=== PATIENT | female | born 1980 | race African-American/Black ===

== ENCOUNTER 2017-08-06 12:09 | Emergency (ER) | payer OTHER ==
[2017-08-06] MEDS ORDERED: Ondansetron HCl/PF 4 MG/2 ML Vial ONE (12:37)
[2017-08-06] MEDS ORDERED: Morphine Sulfate 2 MG/ML SYRINGE ONE (12:37)
[2017-08-06 12:41] LABS: #Eosinphils 0.1 thou/uL (0.0-0.7); #Lymphocytes 2.6 thou/uL (1.20-3.40); #Monocytes 0.6 thou/uL (0.11-0.59); #Neutrophils 5.9 thou/uL (1.40-6.50); %Basophils 0.3 % (0.0-1.0); %Eosinophils 0.6 % (0.0-10.0); %Lymphocytes 28.5 % (21.0-51.0); %Monocytes 6.3 % (0.0-10.0); Hematocrit 40.8 % (36.0-47.0); Mean Platelet Volume 6.9 fL (7.4-10.4); White Blood Cell (WBC) Count 9.2 thou/uL (4.8-10.8)
--- NOTE | 2017-08-06 12:46 | RAD ---
PORTABLE CHEST: HISTORY: Chest pain. FINDINGS: Heart size and mediastinum are within normal limits. The lungs are clear of infiltrates. No signif icant bony findings. IMPRESSION: No active intrathoracic disease. POS: [facility]
[2017-08-06 12:59] LABS: ALT (SGPT) 7 U/L (8-55); AST (SGOT) 13 U/L (5-34); Alkaline Phosphatase 67 U/L (40-150); Anion Gap 10 mmol/L (10-20); BUN (Urea Nitrogen) 5 mg/dL (7.0-18.7); Bilirubin, Total 0.7 mg/dL (0.2-1.2); CK (CPK) 96 U/L (29-168); Calc. Creatinine Clearance 0 mL/min (70-130); Calcium 9.2 mg/dL (7.8-10.44); Carbon Dioxide 28 mmol/L (22-29); Chloride 106 mmol/L (98-107); Estimated GFR-MDRD Greater than 90; Globulin 2.9 g/dL (2.4-3.5); Lipase 26 U/L (8-78); Protein, Total 6.7 g/dL (6.0-8.3)
[2017-08-06 13:04] LABS: Troponin I Less than 0.010 ng/mL (< 0.028)
[2017-08-06] MEDS ORDERED: Potassium Chloride 20 MEQ TAB ONE (13:19)
--- NOTE | 2017-08-06 14:17 | ULT ---
RIGHT UPPER QUADRANT ULTRASOUND: Indication: History of chest pain. FINDINGS: Liver measures 18.4 cm. No focal hepatic lesion is evident. Visualized gallbladder is normal appearing. No sonographic Lane's sign is reported. Common bile du ct measures 2.9 mm. Visualized pancreas is unremarkable. Right kidney measures 11.1 cm. No focal renal lesion or hydronephrosis is evident. IMPRESSION: No acute sonographic abnormality within the right upper quadrant. POS: [facility]
[2017-08-06 15:45] LABS: Troponin I Less than 0.010 ng/mL (< 0.028)
== END 2017-08-06 16:08 | disposition home or self-care (01) ==
LOC: ERS 12:09
DX: R07.89 Other chest pain (principal); G89.29 Other chronic pain; M54.9 Dorsalgia, unspecified; F17.210 Nicotine dependence, cigarettes, uncomplicated; I10 Essential (primary) hypertension; Z79.899 Other long term (current) drug therapy
CPT/HCPCS: 36415; 71010; 76705; 80053; 82553; 83690; 84484; 85025; 93005; 96361; 96374; 96375; J2270; J2405

== ENCOUNTER 2017-08-27 22:34 | Inpatient (IN) | payer OTHER ==
[2017-08-27] MEDS ORDERED: Acetaminophen 500 MG TAB ONE (23:57)
[2017-08-27] MEDS ORDERED: Metoclopramide HCl 10 MG/2 ML VIAL ONE (23:57)
[2017-08-27] MEDS ORDERED: diphenhydrAMINE 50 MG/ML VIAL ONE (23:57)
[2017-08-27 23:59] LABS: #Eosinphils 0.1 thou/uL (0.0-0.7); #Lymphocytes 3.5 thou/uL (1.20-3.40); #Monocytes 0.9 thou/uL (0.11-0.59); #Neutrophils 14.8 thou/uL (1.40-6.50); %Basophils 0.1 % (0.0-1.0); %Eosinophils 0.7 % (0.0-10.0); %Lymphocytes 18.2 % (21.0-51.0); %Monocytes 4.8 % (0.0-10.0); Hematocrit 39.7 % (36.0-47.0); White Blood Cell (WBC) Count 19.4 thou/uL (4.8-10.8)
[2017-08-28] MEDS ORDERED: Dexamethasone 4 mg/ml Vial ONE (00:01)
[2017-08-28 00:21] LABS: ALT (SGPT) 12 U/L (8-55); AST (SGOT) 12 U/L (5-34); Alkaline Phosphatase 65 U/L (40-150); Anion Gap 13 mmol/L (10-20); BUN (Urea Nitrogen) 7 mg/dL (7.0-18.7); Bilirubin, Total 0.4 mg/dL (0.2-1.2); Calc. Creatinine Clearance 0 mL/min (70-130); Calcium 9.2 mg/dL (7.8-10.44); Carbon Dioxide 22 mmol/L (22-29); Chloride 109 mmol/L (98-107); Estimated GFR-MDRD Greater than 90; Protein, Total 6.9 g/dL (6.0-8.3)
[2017-08-28] MEDS ORDERED: Ondansetron HCl/PF 4 MG/2 ML Vial IVP PRN (04:06)
[2017-08-28] MEDS ORDERED: Ondansetron ODT 4 MG TAB SL PRN (04:06)
[2017-08-28] MEDS ORDERED: Acetaminophen 325 MG TAB PO PRN (04:06)
[2017-08-28 05:52] VITALS: BMI 25.4
--- NOTE | 2017-08-28 08:14 | CT ---
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 Pt states pain started in back of r side of head and move d into shoulder and neck. Also reports r sided face tingling. Denies rash, denies fever, denies cough, denies dysuria. Pt has h/o migraine headaches "all the time", last was 2 weeks ago and was se en here. Pt states she usually gets headaches when she gets stressed out. Pmh high BP. TECHNIQUE: Axial computed tomography images of the head/brain without intravenous contrast. COMPARISON: No relevant prior studies available. FINDINGS: No definite acute skull fracture. Included paranasal sinuses are essentially clear. No acute intracranial hemorrhage or mass effect. Ventricle size is normal for age. No definite acute infarct by CT. IMPRESSION: No acute intracranial bleed or mass effect. Thank you for allowing us to participate in the care of your patient. Dictated and Authenticated by: Kingsley Cheng MD 08/28/2017 1:27 AM Central Time ([place] \\T\\ [place]) FINAL REPORT CT HEAD NONCONTRAST: 08/28/2017, PERFORMED ON AN EMERGENCY BASIS AT 0103 HOURS HISTORY: Headache. Right facial tingling. COMPARISON: 01/13/2016. FINDINGS: Findings agree with the preliminary report by Dr. Cheng from [facility]. No acute intracrani al abnormalities are demonstrated on noncontrast CT head. Code QA. POS: [facility]
[2017-08-28] MEDS: Sodium Chloride 0.9% 1,000 ML IV SCH ×2 (13:00→20:57)
[2017-08-28] MEDS ORDERED: Potassium Chloride 20 MEQ TAB PO SCH (13:00)
--- NOTE | 2017-08-28 15:05 | RAD ---
CERVICAL SPINE FIVE VIEWS: HISTORY: Neck pain. FINDINGS: Osteophytosis is present throughout the vertebral bodies and facets. No acute fracture or dislocati on is apparent. There is rightward convex curvature of the lower cervical spine on the frontal view . Mild chronic wedging of the C4 and C5 vertebral bodies is similar in appearance to the prior stud y from 2007. IMPRESSION: Cervical spondylosis. No acute osseous abnormalities are demonstrated. POS: [facility]
[2017-08-28] MEDS: Ketorolac Tromethamine 30 MG/ML VIAL IVP PRN (18:11)
[2017-08-28] MEDS: Ondansetron HCl/PF 4 MG/2 ML Vial SLOW IVP PRN (19:23)
[2017-08-28] MEDS: Topiramate 25 MG TAB PO SCH (20:57)
[2017-08-29] MEDS: Acetaminophen 325 MG TAB PO PRN ×2 (00:24→08:49)
[2017-08-29] MEDS: Ketorolac Tromethamine 30 MG/ML VIAL IVP PRN ×3 (03:59→09:52)
[2017-08-29] MEDS: Sodium Chloride 0.9% 1,000 ML IV SCH ×3 (04:00→20:10)
[2017-08-29] MEDS: Topiramate 25 MG TAB PO SCH ×2 (10:48→20:11)
[2017-08-29] MEDS: Acetaminophen/Codeine 30-300mg Tablet PO PRN ×2 (12:23→20:11)
[2017-08-29 12:42] LABS: Amphetamine Detected (NotDetected); Methadone Not Detected (NotDetected); Methamphetamine Detected (NotDetected)
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
[2017-08-29] MEDS: Valproate Sodium 500 MG in Sodium Chloride 0.9% 100 ML IVPB SCH (20:10)
[2017-08-30] MEDS ORDERED: ISOVUE-370 76%-LOCM 1 ML ONE (02:19)
[2017-08-30] MEDS: Sodium Chloride 0.9% 1,000 ML IV SCH ×3 (05:30→22:23)
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
[2017-08-30] MEDS: Topiramate 25 MG TAB PO SCH ×2 (08:42→22:20)
[2017-08-30] MEDS: Acetaminophen/Codeine 30-300mg Tablet PO PRN ×3 (08:42→17:37)
[2017-08-30] MEDS: Valproate Sodium 500 MG in Sodium Chloride 0.9% 100 ML IVPB SCH (08:44)
[2017-08-30] MEDS: Ondansetron HCl/PF 4 MG/2 ML Vial SLOW IVP PRN (15:13)
--- NOTE | 2017-08-30 16:51 | MRI ---
BRAIN MRI WITHOUT CONTRAST: DATE: 08/30/17. COMPARISON: None. HISTORY: Headache and right leg weakness. TECHNIQUE: Multiplanar, multisequence MR imaging of the brain is obtained without contrast. FINDINGS: There is a focus of restricted diffusion measuring 1.1 cm in AP dimension along the inferior aspect o f the medulla laterally on the right, evidence of acute medullary infarction. There is associated increased T2 and FLAIR signal within the medulla in this region. No midline shift or mass effect. Axial gradient echo imaging demonstrates no evidence for intracranial hemorrhage. Imaged paranasal sinuses/mastoid air cells appear grossly unremarkable. IMPRESSION: Acute right-sided medullary infarction. No intracranial hemorrhage seen. POS: [facility]
--- NOTE | 2017-08-30 22:26 | CT ---
CT NECK WITH 3D VOLUME RENDERING: Indication: Stroke. FINDINGS: The imaged aortic arch is patent. Bilateral subclavian arteries are patent. There is slight dominance of the right vertebral artery. There is marked luminal narrowing of the distal, intradural, right ve rtebral artery with subsequent diminished caliber. A component of the small caliber could relate to a partial termination in PICA. The nondominant left vertebral artery is patent. Evaluation of each com mon carotid artery and cervical ICA reveals no high grade stenosis or occlusion. IMPRESSION: Focal luminal irregularity and diminished caliber of the right vertebral artery for which a component of distal atherosclerotic vascular disease is suspected and does correlate to the MR distribution of recent infarction of the brain stem. POS: [facility]
--- NOTE | 2017-08-31 00:21 | PRG ---
DATE OF SERVICE: 08/30/2017 SUBJECTIVE: Ms. Balderas is a pleasant 37-year-old female who presented with the he adaches and difficulty with gait imbalance. She had MRI brain done today which did show small acute infarcts involving the right posterolateral medulla. She reports that she continues to have headac he on the right frontotemporal region. The headache did get better with the use of IV Depakote; how ever, the effect only lasted for a few hours with recurrence of the symptoms. PHYSICAL EXAMINATION: VITAL SIGNS: Blood pressure of 155/85, pulse of 85, temperature of 97.7, respirations of 18, O2 sat of 99% on room air. GENERAL: Well-developed, well-nourished female in no apparent distress. RESPIRATORY: Clear to auscultation bilaterally. CARDIOVASCULAR: Regular rate and rhythm. NEUROLOGIC: Essentially unchanged when compared to yesterday. IMAGING STUDIES: MRI brain without contrast was reviewed, for which findings are as noted in the luo bjective section of this dictation. IMPRESSION: 1. Acute right-sided posterolateral medullary ischemic infarct. 2. Hypertension. 3. Migraine. Ms. Balderas is a pleasant 37-year-old female, who presented with an acute onset of headache and right-sided weakness and difficulty with balance. She had an MRI of brain done, which did show acute infarction involving the right posterolateral medullary region. This is likely secon gato to poorly controlled high blood pressure. After discussing with the patient, she did mention t hat she is not compliant with her blood pressure medications and she has not been taking her blood p ressure medicine as prescribed over the past few days. I have encouraged her that she needs to take her medications regularly and follow the compliance as directed. I will recommend starting her on aspirin 325 mg daily for secondary stroke prevention. I will recommend continuing PT, OT. I will o btain echocardiogram and CT angiogram of the neck for further evaluation. Thank you for your consultation.
[2017-08-31] MEDS: cloNIDine 0.1 MG TAB PO PRN (01:11)
[2017-08-31] MEDS: Sodium Chloride 0.9% 1,000 ML IV SCH ×3 (03:20→20:28)
[2017-08-31] MEDS: Acetaminophen 325 MG TAB PO PRN ×2 (03:27→20:11)
--- NOTE | 2017-08-31 08:50 | PRG ---
DATE OF SERVICE: 08/31/2017 SUBJECTIVE: The patient still has a headache. She has strong upper extremity hand grasp and she al so has toe wiggle however, she is still having some ataxia. PHYSICAL EXAMINATION: GENERAL: Upon evaluation, she is awake. She is alert. She still has a headache. VITAL SIGNS: Her blood pressure 120/70, pulse 60, respiration rate 18. She is afebrile. NECK: Supple with no increased JVP or carotid bruit. Carotid had good upstroke with no thyromegaly . COR: Regular rate and rhythm. CHEST: Symmetrical. Clear to auscultation and percussion. ABDOMEN: Soft, nontender with normoactive bowel sounds. There is no bruit or organomegaly. EXTREMITIES: No edema or cyanosis. She had palpable pedal pulses. SKIN: There is no evidence of ulcers lesion, or rash. NEUROLOGIC: She is awake, alert, and oriented to person, place, and time. ASSESSMENT: 1. Migraine headache. 2. Acute cerebrovascular accident. 3. Hypertension. PLAN: We will continue physical therapy, occupational therapy and aspirin. The patient verbalized understanding and all questions answered to her satisfaction.
[2017-08-31] MEDS: Aspirin 325 MG TAB PO SCH (08:58)
[2017-08-31] MEDS: Topiramate 25 MG TAB PO SCH ×2 (08:58→20:11)
[2017-08-31] MEDS: Acetaminophen/Codeine 30-300mg Tablet PO PRN (17:56)
[2017-09-01] MEDS: Acetaminophen/Codeine 30-300mg Tablet PO PRN ×2 (04:05→13:52)
[2017-09-01] MEDS: Sodium Chloride 0.9% 1,000 ML IV SCH ×3 (06:15→16:20)
[2017-09-01] MEDS: Topiramate 25 MG TAB PO SCH ×2 (09:15→21:18)
[2017-09-01] MEDS: Aspirin 325 MG TAB PO SCH (09:15)
[2017-09-01] MEDS: Acetaminophen 325 MG TAB PO PRN (09:25)
[2017-09-01] MEDS ORDERED: Milk Of Magnesia 30 ML UDCUP PO SCH (10:00)
[2017-09-01 11:09] LABS: #Basophils 0.1 thou/uL (0.0-0.2); #Eosinphils 0.1 thou/uL (0.0-0.7); #Lymphocytes 1.9 thou/uL (1.20-3.40); #Monocytes 1.1 thou/uL (0.11-0.59); #Neutrophils 5.5 thou/uL (1.40-6.50); %Eosinophils 1.2 % (0.0-10.0); %Monocytes 13.1 % (0.0-10.0); Hematocrit 38.6 % (36.0-47.0); Mean Platelet Volume 6.8 fL (7.4-10.4); Red Blood Cell (RBC) Count 3.56 mill/uL (4.20-5.40); White Blood Cell (WBC) Count 8.8 thou/uL (4.8-10.8)
[2017-09-01 11:41] LABS: Anion Gap 9 mmol/L (10-20); BUN (Urea Nitrogen) 6 mg/dL (7.0-18.7); Calc. Creatinine Clearance 119 mL/min (70-130); Calcium 8.8 mg/dL (7.8-10.44); Carbon Dioxide 20 mmol/L (22-29); Chloride 112 mmol/L (98-107); Estimated GFR-MDRD Greater than 90
--- NOTE | 2017-09-01 15:40 | PQF ---
CLINICAL DOCUMENTATION IMPROVEMENT CLARIFICATION FORM: ICD-10 Updated PLEASE DO AN ADDENDUM TO THE PROGRESS NOTE WITH ANY DOCUMENTATION UPDATES OR ADDITIONS AND CARRY THROUGH TO DC SUMMARY. THANK YOU. DATE: 09/01/17 ATTN: Dr. Rodriguez 09/03/17 Please exercise your independent, professional judgment in responding to the clarification form. Clinical indicators are provided on the bottom of this form for your review Please check appropriate box(s): [ ] Hemiplegia Specify: [ ] Non dominant side [ ] Dominant side [ x ] R sided weakness due to Acute CVA [ ] Weakness (please specify anatomical area) Specify: [ x] Non dominant side [ ] Dominant side [ ] Other diagnosis [ ] Unable to determine CLINICAL INDICATORS - SIGNS / SYMPTOMS / LABS NEUROLOGY PN 08/30: PRESENTED W/ AN ACUTE ONSET OF HEADACHE & RIGHT-SIDED WEAKNESS & DIFFICULTY W/ BALANCE. MRI BRAIN DID SHOW ACUTE INFARCTION INVOLVING THE R POSTEROLATERAL MEDULLARY REGION. RISKS: PN 11/: MIGRAINE HEADACHE. ACUTE CVA, HTN. TREATMENT: NEURO PN 08/30: I WILL RECOMMEND STARTING HER ON ASPIRIN 325 MG DAILY FOR SECONDARY STROKE PREVENTION. RECOMMEND CONTINUING PT/OT Thank you, Miguelina (This form is maintained as a part of the permanent medical record) 2015 [employer] All Rights Reserved Miguelina Álvarez RN, BSN [email or web address] Office: [phone] [facility]ASS[facility]T HOSPITALDrew
[2017-09-01] MEDS: cloNIDine 0.1 MG TAB PO PRN (16:20)
--- NOTE | 2017-09-01 17:51 | PRG ---
DATE OF SERVICE: 09/01/2017 Ms. Balderas is a 37-year-old female admitted for right-sided weakness. In addition, she presents wi th headache and mild degree of ataxia. She had imaging performed in the way of an MRI scan as well as CT angiogram which reveals the presence of vessel irregularity involving the right vertebral daniela ry. She does have a normal flow into the distant aspect of her posterior circulation. The MRI scan reveals a right-sided acute ischemic event within the medulla. She is currently recovering in the hospital. She has been ambulating with a 4-point walker. She seymour s a history of hypertension for which she is not compliant with her medications. I was consulted to evaluate her and determine if interventional management of the vertebral artery irregularity was an appropriate next step. I believe at this point in time I would manage her first medically. She seymour s already been started on an adult aspirin. I have advised her that she needs to remain vigilant wi th respect to maintenance of her blood pressure medications as well as her antiplatelet agent. She is likely to discharge to rehabilitation. My plan will be to follow up with her in the outpatient s etting for followup imaging. I have discussed the case with her nurse as well as Dr. Burt with neur ology.
[2017-09-01] MEDS: Docusate 100 MG CAP PO SCH (21:18)
[2017-09-02] MEDS: Docusate 100 MG CAP PO SCH ×2 (08:55→20:29)
[2017-09-02] MEDS: Acetaminophen/Codeine 30-300mg Tablet PO PRN ×2 (08:55→20:30)
[2017-09-02] MEDS: Aspirin 325 MG TAB PO SCH (08:55)
--- NOTE | 2017-09-02 09:49 | PRG ---
DATE OF SERVICE: 09/02/2017 SUBJECTIVE: The patient had a good night. She still has a headache on and off. She is depressed a nd wants something for this. PHYSICAL EXAMINATION: GENERAL: Upon evaluation, she is awake, alert, and oriented to person, place, and time. VITAL SIGNS: Her blood pressure is 120/70, pulse 60, respiration rate 18. She is afebrile. NECK: Supple with no increased JVP or carotid bruit. Carotid had good upstroke with no thyromegaly . COR: Regular rate and rhythm. CHEST: Symmetrical. Clear to auscultation and percussion. ABDOMEN: Soft, nontender with normoactive bowel sounds. No bruit or organomegaly. EXTREMITIES: No edema or cyanosis. She had palpable pedal pulses. SKIN: There is no evidence of ulcers, lesion, or rash. NEUROLOGIC: She is awake. She is alert. She does have some ataxia still, but she has good upper e xtremity strength. ASSESSMENT: 1. Acute cerebrovascular accident. 2. Hypertension. 3. Drug use. 4. Depression. 5. Migraine headache. PLAN: 1. The patient will be started on Zoloft 50 mg at bedtime. 2. We will ask our social research assistant to arrange rehabilitation placement. all consultants.
[2017-09-02] MEDS: Topiramate 25 MG TAB PO SCH ×2 (10:20→20:29)
[2017-09-03] MEDS: Docusate 100 MG CAP PO SCH (08:05)
[2017-09-03] MEDS: Aspirin 325 MG TAB PO SCH (08:05)
[2017-09-03] MEDS: Topiramate 25 MG TAB PO SCH (08:06)
[2017-09-03] MEDS: Acetaminophen/Codeine 30-300mg Tablet PO PRN (15:03)
[2017-09-03 15:52] VITALS: BP 140/82; TEMP 98
== END 2017-09-03 19:40 | DRG 65 ==
LOC: ERS 22:34 → OBSVTOIN 08-28 03:46 → ONC 08-28 03:46 → 2SE 09-01 13:01
PROVIDERS: ADMIT Specialist; ATTEND Specialist
DX: I63.9 Cerebral infarction, unspecified (principal); G81.93 Hemiplegia, unspecified affecting right nondominant side; I10 Essential (primary) hypertension; F32.9 Major depressive disorder, single episode, unspecified; G43.909 Migraine, unspecified, not intractable, without status migrainosus; F19.90 Other psychoactive substance use, unspecified, uncomplicated; Z91.14 Patient's other noncompliance with medication regimen; R27.0 Ataxia, unspecified; F17.210 Nicotine dependence, cigarettes, uncomplicated
CPT/HCPCS: 36415; 70450; 70498; 70551; 72040; 80048; 80053; 80061; 80306; 81025; 85025; 85652; 93306; 96361; 96365; 96375; A4216; G8978-GP-CK; G8978-GP-CM; G8979-GP-CJ; G8987-GO-CJ; G8988-GO-CI; G8996-GN-CI; G8997-GN-CH; J1100; J1200; J1885; J2405; J2765; J7050

== ENCOUNTER 2017-10-25 14:25 | Emergency (ER) | payer OTHER ==
[~2017-10-25 14:25] MED LIST: ISOVUE-370 76%-LOCM 1 ML ONE
[2017-10-25 15:58] LABS: #Eosinphils 0.1 thou/uL (0.0-0.7); #Lymphocytes 2.7 thou/uL (1.20-3.40); #Monocytes 0.8 thou/uL (0.11-0.59); #Neutrophils 5.7 thou/uL (1.40-6.50); %Basophils 0.5 % (0.0-1.0); %Eosinophils 1.6 % (0.0-10.0); %Monocytes 8.2 % (0.0-10.0); %Neutrophils 60.7 % (42.0-75.0); Hemoglobin 14.1 g/dL (12.0-16.0); Mean Corpuscular HGB CONC 32.9 g/dL (32.0-36.0); Mean Corpuscular Hemoglobin 36.7 pg (27.0-31.0); Mean Platelet Volume 6.4 fL (7.4-10.4); Platelet Count 321 thou/uL (130-400); RBC Distribution Width 10.7 % (11.5-14.5); Red Blood Cell (RBC) Count 3.86 mill/uL (4.20-5.40); White Blood Cell (WBC) Count 9.4 thou/uL (4.8-10.8)
[2017-10-25 16:02] LABS: Bilirubin Negative (Negative); Blood, Urine Negative (Negative); Clarity CLEAR (Clear); Glucose, Urine (Dipstick) Negative (Negative); Leukocyte Small (Negative); Nitrite Negative (Negative); Protein, Urine (Dipstick) Negative (Neg-Trace); Specific Gravity, Urine 1.013 (1.002-1.036); Urobilinogen 0.2 mg/dL (0.2-1.0)
[2017-10-25 16:05] LABS: BHCG - Serum Negative (NEGATIVE); Pregs Control Background? CLEAR/WHITE (CLR/WHITE); Pregs Control Bar Appear? YES (CONTROL BAR)
[2017-10-25 16:05] LABS: Bacteria/HPF Rare-Few HPF (None Seen); Hyaline Casts/LPF 0-3 HYALINE CAST LPF (0-3 Hyaline); RBC/HPF 0-3 HPF (0-3); Squamous Epithelial 0-3 HPF (0-3)
--- NOTE | 2017-10-25 16:07 | RAD ---
RADIOGRAPH CHEST 1 VIEW: HISTORY: 37-year-old female with acute chest pain. FINDINGS: There is no air space density, pulmonary edema, or pneumothorax. The lateral costophrenic angles are sharp. IMPRESSION: No acute pulmonary findings. rex POS: [facility]
[2017-10-25 16:17] LABS: ALT (SGPT) 41 U/L (8-55); AST (SGOT) 22 U/L (5-34); Albumin 3.8 g/dL (3.5-5.0); Alkaline Phosphatase 71 U/L (40-150); Anion Gap 13 mmol/L (10-20); BUN (Urea Nitrogen) 14 mg/dL (7.0-18.7); Bilirubin, Total 0.4 mg/dL (0.2-1.2); Calc. Creatinine Clearance 0 mL/min (70-130); Carbon Dioxide 24 mmol/L (22-29); Chloride 106 mmol/L (98-107); Estimated GFR-MDRD Greater than 90; Globulin 3.1 g/dL (2.4-3.5); Glucose 86 mg/dL (70-105); Potassium 3.9 mmol/L (3.5-5.1); Protein, Total 6.9 g/dL (6.0-8.3); Sodium 139 mmol/L (136-145)
[2017-10-25 16:22] LABS: CKMB 0.7 ng/mL (0-6.6); Troponin I 0.012 ng/mL (< 0.028)
[2017-10-25] MEDS ORDERED: Metoclopramide HCl 10 MG/2 ML VIAL ONE (16:27)
[2017-10-25] MEDS ORDERED: diphenhydrAMINE 50 MG/ML VIAL ONE (16:27)
--- NOTE | 2017-10-25 19:25 | CT ---
CT BRAIN WITHOUT CONTRAST: Indication: Headache, reported left sided deficit. Comparison: 08-28-17 FINDINGS: No acute infarct, hemorrhage, or hydrocephalus is present. Septum pellucidum and third ventricle are midline. Skull and extracranial soft tissues appear within normal limits. IMPRESSION: No acute intracranial abnormality. POS: [facility]
--- NOTE | 2017-10-25 19:46 | CT ---
CTA OF THE HEAD WITH IV CONTRAST AND 3D REFORMAT IMAGING CTA NECK WITH IV CONTRAST AND 3D REFORMAT IMAGING: Indication: Headache with left sided deficit. Concern for possible carotid dissection. Comparison: CTA of the neck, 08-30-17. FINDINGS: No hemodynamically significant stenosis, occlusion, or aneurysmal dilatation is grossly evident. Ther e is some limitation in evaluating the distal petrous and pre-cavernous segments of the left ICA due to some contrast opacification from the cavernous sinuses. The cavernous carotids bilaterally are tor tuous but appear patent. The MCA, WAYLON, and silk screen processor are patent. The right vertebral artery is dominant. T he basilar artery is patent. There is increased flow present within the right vertebral artery when c ompared to the most recent examination dated 08-30-17. Soft tissues appear within normal limits. Lung apices are clear. No acute osseous abnormality is evid ent. IMPRESSION: 1. Improved flow within the intracerebral segment of the right vertebral artery when compared to the most recent CTA of neck dated 08-30-17. 2. No hemodynamically significant stenosis, occlusion, or aneurysmal formation demonstrated. POS: [facility]
--- NOTE | 2017-10-26 14:49 | CT ---
CTA OF THE HEAD WITH IV CONTRAST AND 3D REFORMAT IMAGING CTA NECK WITH IV CONTRAST AND 3D REFORMAT IMAGING: Indication: Headache with left sided deficit. Concern for possible carotid dissection. Comparison: CTA of the neck, 08-30-17. FINDINGS: No hemodynamically significant stenosis, occlusion, or aneurysmal dilatation is grossly evident. Ther e is some limitation in evaluating the distal petrous and pre-cavernous segments of the left ICA due to some contrast opacification from the cavernous sinuses. The cavernous carotids bilaterally are tor tuous but appear patent. The MCA, WAYLON, and sole rougher are patent. The right vertebral artery is dominant. T he basilar artery is patent. There is increased flow present within the right vertebral artery when c ompared to the most recent examination dated 08-30-17. Soft tissues appear within normal limits. Lung apices are clear. No acute osseous abnormality is evid ent. IMPRESSION: 1. Improved flow within the intracerebral segment of the right vertebral artery when compared to the most recent CTA of neck dated 08-30-17. 2. No hemodynamically significant stenosis, occlusion, or aneurysmal formation demonstrated.
--- NOTE | 2017-12-04 20:16 | EKG ---
Test Reason : Blood Pressure : / mmHG Vent. Rate : 075 BPM Atrial Rate : 075 BPM P-R Int : 176 ms QRS Dur : 066 ms QT Int : 364 ms P-R-T Axes : 029 012 019 degrees QTc Int : 406 ms Normal sinus rhythm Nonspecific ST abnormality Abnormal ECG Confirmed by TO DANILO Barba ([id number]), proposal editor AMELIA AGOSTO ([id number]) on 12/04/2017 8:16:48 PM Referred By: Confirmed By:DANILO GILLILAND M.D.
== END 2017-10-25 19:44 | disposition home or self-care (01) ==
LOC: ERS 14:25
DX: R51 Headache (principal); I10 Essential (primary) hypertension; Z86.73 Personal history of transient ischemic attack (TIA), and cerebral infarction without residual deficits; F41.9 Anxiety disorder, unspecified; F17.210 Nicotine dependence, cigarettes, uncomplicated
CPT/HCPCS: 36415; 70450; 70496; 70498; 71045; 80053; 81003; 81015; 82553; 84484; 84703; 85025; 85379; 93005; 96361; 96365; 96375; 99406; J1200; J2765

== ENCOUNTER 2017-12-30 19:20 | Emergency (ER) | payer OTHER ==
[2017-12-30 20:17] LABS: #Eosinphils 0.2 thou/uL (0.0-0.7); #Lymphocytes 3.5 thou/uL (1.20-3.40); #Monocytes 1.1 thou/uL (0.11-0.59); %Basophils 0.3 % (0.0-1.0); %Eosinophils 1.8 % (0.0-10.0); %Monocytes 8.4 % (0.0-10.0); %Neutrophils 62.5 % (42.0-75.0); Hemoglobin 14.2 g/dL (12.0-16.0); Mean Corpuscular Hemoglobin 37.2 pg (27.0-31.0); Mean Platelet Volume 5.8 fL (7.4-10.4); Platelet Count 305 thou/uL (130-400); RBC Distribution Width 10.8 % (11.5-14.5); Red Blood Cell (RBC) Count 3.81 mill/uL (4.20-5.40); White Blood Cell (WBC) Count 12.8 thou/uL (4.8-10.8)
[2017-12-30 20:28] LABS: MDiff Complete? YES; Macrocytosis SLIGHT = 6-15 cells (100X) (0-5/hpf); PLT Morphology Comment Appears Adequate
[2017-12-30 20:37] LABS: ALT (SGPT) 33 U/L (8-55); AST (SGOT) 23 U/L (5-34); Albumin 3.9 g/dL (3.5-5.0); Alkaline Phosphatase 77 U/L (40-150); Anion Gap 11 mmol/L (10-20); BUN (Urea Nitrogen) 15 mg/dL (7.0-18.7); Bilirubin, Total 0.2 mg/dL (0.2-1.2); Calc. Creatinine Clearance 0 mL/min (70-130); Calcium 9.8 mg/dL (7.8-10.44); Carbon Dioxide 26 mmol/L (22-29); Chloride 108 mmol/L (98-107); Estimated GFR-MDRD Greater than 90; Glucose 76 mg/dL (70-105); Potassium 4.1 mmol/L (3.5-5.1); Protein, Total 6.9 g/dL (6.0-8.3); Sodium 141 mmol/L (136-145)
--- NOTE | 2017-12-30 21:14 | RAD ---
LEFT TIBIA AND FIBULA TWO VIEW 12/30/17 HISTORY: Injury. COMPARISON: None. FINDINGS: The proximal tibia and fibula appear to be intact. There appears to be a small ossicle or injury of t he distal fibula. Mild soft tissue edema. IMPRESSION: Intact proximal tib/fib. POS: [facility]
--- NOTE | 2017-12-30 21:16 | RAD ---
LEFT FOOT THREE VIEW 12/30/17 HISTORY: Injury. COMPARISON: None. FINDINGS: No acute displaced fracture or malalignment. Lisfranc interval appears to be maintained. IMPRESSION: No displaced fracture or malalignment. POS: [facility]
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
[2017-12-30] MEDS ORDERED: Ibuprofen 200 MG TAB ONE (21:58)
--- NOTE | 2018-01-01 19:03 | EKG ---
Test Reason : DIZZINESS Blood Pressure : / mmHG Vent. Rate : 086 BPM Atrial Rate : 086 BPM P-R Int : 166 ms QRS Dur : 082 ms QT Int : 338 ms P-R-T Axes : 024 001 026 degrees QTc Int : 404 ms Normal sinus rhythm Normal ECG Confirmed by CAROLEE GARZA, MAGGIE ([id number]), content editor AMELIA AGOSTO ([id number]) on 01/01/2018 7:02:34 PM Referred By: CAROLEE Confirmed By:MAGGIE ZARCO MD
== END 2017-12-30 22:04 | disposition home or self-care (01) ==
LOC: ERS 19:20
DX: S82.65XA Nondisplaced fracture of lateral malleolus of left fibula, initial encounter for closed fracture (principal); R42 Dizziness and giddiness; Z86.73 Personal history of transient ischemic attack (TIA), and cerebral infarction without residual deficits; I10 Essential (primary) hypertension; G56.00 Carpal tunnel syndrome, unspecified upper limb; Z87.891 Personal history of nicotine dependence; W19.XXXA Unspecified fall, initial encounter
CPT/HCPCS: 36416; 80053; 85025; 93005

== ENCOUNTER 2018-04-07 12:38 | Inpatient (IN) | payer OTHER, SELFPAY ==
[2018-04-07 12:59] LABS: #Eosinphils 0.2 thou/uL (0.0-0.7); #Lymphocytes 3.1 thou/uL (1.20-3.40); #Monocytes 0.9 thou/uL (0.11-0.59); #Neutrophils 7.2 thou/uL (1.40-6.50); %Basophils 0.1 % (0.0-1.0); %Eosinophils 1.5 % (0.0-10.0); %Lymphocytes 27.3 % (21.0-51.0); %Monocytes 7.7 % (0.0-10.0); %Neutrophils 63.4 % (42.0-75.0); Hemoglobin 15.1 g/dL (12.0-16.0); Mean Corpuscular HGB CONC 34.5 g/dL (32.0-36.0); Mean Corpuscular Hemoglobin 36.2 pg (27.0-31.0); Mean Platelet Volume 6.6 fL (7.4-10.4); Platelet Count 317 thou/uL (130-400); Red Blood Cell (RBC) Count 4.17 mill/uL (4.20-5.40); White Blood Cell (WBC) Count 11.4 thou/uL (4.8-10.8)
[2018-04-07 13:06] LABS: Prothrombin Time 13.1 SEC (12.0-14.7)
[2018-04-07 13:08] LABS: BHCG - Serum Negative (NEGATIVE); Pregs Control Background? CLEAR/WHITE (CLR/WHITE); Pregs Control Bar Appear? YES (CONTROL BAR)
[2018-04-07 13:17] LABS: CKMB 1.2 ng/mL (0-6.6); Troponin I Less than 0.010 ng/mL (< 0.028)
[2018-04-07 13:18] LABS: ALT (SGPT) 17 U/L (8-55); AST (SGOT) 25 U/L (5-34); Albumin 4.1 g/dL (3.5-5.0); Alkaline Phosphatase 92 U/L (40-150); Anion Gap 11 mmol/L (10-20); BUN (Urea Nitrogen) 8 mg/dL (7.0-18.7); Bilirubin, Total 0.4 mg/dL (0.2-1.2); Calc. Creatinine Clearance 0 mL/min (70-130); Calcium 9.5 mg/dL (7.8-10.44); Carbon Dioxide 22 mmol/L (22-29); Chloride 111 mmol/L (98-107); Estimated GFR-MDRD Greater than 90; Glucose 68 mg/dL (70-105); Potassium 4.1 mmol/L (3.5-5.1); Protein, Total 8.1 g/dL (6.0-8.3); Sodium 140 mmol/L (136-145)
--- NOTE | 2018-04-07 13:46 | CT ---
HEAD CT WITHOUT CONTRAST: Date: 04/07/18 COMPARISON: 10/25/17. HISTORY: Dizziness, headaches, weakness, and left-sided deficits. TECHNIQUE: Serial axial CT imaging is obtained at 5 mm intervals from vertex through skull base without contrast . FINDINGS: Imaged paranasal sinuses/mastoid air cells are well aerated. There is no displaced calvarial fracture . There is no intracranial hemorrhage, midline shift, mass effect, or ventricular enlargement. IMPRESSION: No acute findings. Results called to Dr. Tenorio at 1253 hours on 04/07/18. CODE CR. POS: [facility]
[2018-04-07] MEDS ORDERED: Acetaminophen 500 MG TAB ONE (14:07)
--- NOTE | 2018-04-07 14:09 | CT ---
CT ARTERIOGRAM NECK WITH IV CONTRAST AND 3D MIP IMAGING CT ARTERIOGRAM HEAD WITH IV CONTRAST AND 3D MIP IMAGING CT BRAIN WITH IV CONTRAST: Date: 04/07/18 COMPARISON: Noncontrast study performed on the same date. FINDINGS: No abnormal areas of contrast enhancement involve the brain parenchyma. There is bovine origin of the great vessels at the aortic arch with good contrast flow into each comm on carotid and vertebral artery. Each carotid bifurcation and internal carotid artery are widely patent. Medial deviation to a retroph aryngeal course of each internal carotid artery is apparent. No significant calcification is apparent . [place] of [place] is intact. Each cerebral artery is opacified without focal filling defect or signifi cant stenosis evident. IMPRESSION: No significant abnormalities are demonstrated. Findings called to Dr. Tenorio in the emergency department at 1245 hours. CODE CR. POS: [facility]
[2018-04-07 15:22] LABS: Bilirubin Negative (Negative); Blood, Urine Negative (Negative); Clarity CLEAR (Clear); Glucose, Urine (Dipstick) Negative (Negative); Leukocyte Small (Negative); Nitrite Negative (Negative); Protein, Urine (Dipstick) Negative (Neg-Trace); Urobilinogen 0.2 mg/dL (0.2-1.0); pH, Urine 7.5 (5.0-9.0)
[2018-04-07 15:24] LABS: Bacteria/HPF None Seen HPF (None Seen); Hyaline Casts/LPF 0-3 HYALINE CAST LPF (0-3 Hyaline); Pathc Cast-AUWi Flag 0.58 (0-2.49); Squamous Epithelial 0-3 HPF (0-3)
[2018-04-07 15:31] LABS: Specific Gravity, Urine 1.055 (1.002-1.036)
[2018-04-07 16:28] VITALS: BMI 38.0
[2018-04-07] MEDS ORDERED: Ondansetron ODT 8 MG TAB PO PRN (21:58)
[2018-04-07] MEDS: Acetaminophen/Codeine 30-300mg Tablet PO PRN (23:55)
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
--- NOTE | 2018-04-08 03:33 | CON ---
DATE OF CONSULTATION: 04/07/2018 CONSULTING PHYSICIAN: Hospitalist Service. IMPRESSION: The patient has recurrent complaints of left-sided tingling and some weakness. Her init ial CTA was unremarkable. Prior MRI in August showed acute medullary infarct, she has reportedly b een on aspirin and Plavix. She reports the symptoms started yesterday, they have not improved. She continues to smoke. Her exam today shows her to be alert and appropriate. Her speech is fluent and clear. There is no c ranial nerve asymmetry. Motor exam showed symmetric strength. There was no fix or drift. Sensation was subjectively decreased in the left hand and leg. Plantar responses were downgoing. Balance was normal. She could stand and walk independently. EKG shows normal sinus rhythm. LABORATORY STUDIES: Unremarkable CBC, coag panel and chemistry panel. Urinalysis showed 11-20 white cells, 4-6 red cells, no bacteria seen. SUMMARY: A 37-year-old woman with complaints of left-sided symptoms. Her prior MRI showed tiny area of possible infarction. She reportedly has been on antiplatelet therapy, would repeat her MRI of th e brain and see if there is any evidence of a new ischemic event. Otherwise, suspect this may be eit her migraine or psychosomatic trauma.
[2018-04-08 04:59] LABS: #Basophils 0.1 thou/uL (0.0-0.2); #Eosinphils 0.2 thou/uL (0.0-0.7); #Lymphocytes 3.6 thou/uL (1.20-3.40); #Monocytes 0.7 thou/uL (0.11-0.59); #Neutrophils 4.9 thou/uL (1.40-6.50); %Basophils 0.8 % (0.0-1.0); %Eosinophils 1.9 % (0.0-10.0); %Lymphocytes 38.1 % (21.0-51.0); %Monocytes 7.5 % (0.0-10.0); %Neutrophils 51.7 % (42.0-75.0); Hemoglobin 13.7 g/dL (12.0-16.0); Mean Corpuscular HGB CONC 34.7 g/dL (32.0-36.0); Mean Corpuscular Hemoglobin 36.5 pg (27.0-31.0); Mean Platelet Volume 6.2 fL (7.4-10.4); Platelet Count 313 thou/uL (130-400); RBC Distribution Width 10.9 % (11.5-14.5); Red Blood Cell (RBC) Count 3.77 mill/uL (4.20-5.40); White Blood Cell (WBC) Count 9.5 thou/uL (4.8-10.8)
[2018-04-08] MEDS: Ciprofloxacin 500 MG TAB PO SCH (05:14)
--- NOTE | 2018-04-08 09:18 | MRI ---
MRI BRAIN WITHOUT CONTRAST: Date: 04/08/18 HISTORY: Dizziness, headache, weakness, left-sided deficits. FINDINGS: Comparison made with exam of 08/30/17. No restricted diffusion is seen. No evidence of acute infarct, hemorrhage, or midline shift is seen. There is a small old infarct in the right side of the medulla. The ventricular size is normal and the basilar cisterns are patent. There is mild mucosal disease in the paranasal sinuses. IMPRESSION: No acute intracranial process. POS: [facility]
--- NOTE | 2018-04-08 12:12 | PRG ---
DATE OF SERVICE: 04/08/2018. SUBJECTIVE: I was consulted on this patient by staff on the floor. I reviewed the patient's records and it states that the patient has already been seen by Dr. Vega and Dr. Vega has put in a con sult note. At this time, I will wait for you to call me if you need any further assistance on this c ase. It seems to me that this was a duplicate consult request.
--- NOTE | 2018-04-08 14:07 | PRG ---
DATE OF SERVICE: 04/08/2018 SUBJECTIVE: The patient states that she rested so-so last night, she still has her headache, though not as intense. She still has significant paresthesia in the left arm, a little bit in the left leg. She is able to move all these extremities well. There is good shirt hemmer strength bilaterally, but when she noted is that since initiation of the IV, there has been some infiltration and swelling of the le ft arm feeling unusual to her. No vomiting, no diarrhea. LABORATORY DATA: CBC shows WBC 9.5, hemoglobin 13.7, hematocrit 39.6 with platelets at 313, sodium 1 40, potassium 4.4, chloride 111, CO2 22, BUN 8, creatinine 0.75 with a glucose of 68. PHYSICAL EXAMINAITON: VITAL SIGNS: Stable. Blood pressure is 115/69, pulse 64. She is afebrile. O2 sat at 94%. GENERAL: Well-developed, well-nourished male, in no acute distress, alert and responsive. HEENT: Pupils equal, round, and reactive to light. Facial nerves are intact. NECK: Supple. CHEST: Clear to auscultation. HEART: Regular rate and rhythm without murmur. ABDOMEN: Soft, nontender. EXTREMITIES: Able to move upper and lower extremities. NEUROLOGIC: Diminished subjective sensation to left upper extremity. Did not observe gait. Mental status is baseline. ASSESSMENT: 1. Possible cerebrovascular accident. 2. Continued tobacco abuse. 3. Hypertension. 4. Urinary tract infection. PLAN: The patient will get an MRI of her brain today. Depending on it's findings, we will direct he r care. She is still encouraged to stop smoking, take her aspirin and Plavix daily and we will encou rage her to get up out of bed into the chair today. We will have fall precautions in place. We will serially reevaluate her.
[2018-04-08] MEDS: Acetaminophen/Codeine 30-300mg Tablet PO PRN (20:40)
[2018-04-09] MEDS: Ciprofloxacin 500 MG TAB PO SCH (05:04)
[2018-04-09 07:57] VITALS: BP 140/78; TEMP 98.1
--- NOTE | 2018-04-11 12:01 | DIS ---
DATE OF ADMISSION: 04/07/2018 DATE OF DISCHARGE: 04/09/2018 CHIEF COMPLAINT ON ADMISSION: Possible cerebrovascular accident. History and physical have been dictated. I will resume from there with hospital course. HOSPITAL COURSE: The patient was placed in a telemetry stroke unit bed where serial reevaluations were performed. Dr. Vega was asked to see the patient in consultation. MRI had been ordered to assess any cerebral damage. Dr. Vega saw the patient in consultation on 04/07/2018 and felt that the MRI was necessary to determine if there are any new ischemic events. Otherwise, she suspected the possibility of migraine or psychosomatic trauma. Over the next 24 hours by 04/08/2018 the patient had and if she is not resting then she still had a headache. She still has significant paresthesias in her left arm somewhat in her leg, but there is good material inspector strength. She was noted to have a UTI and antibiotocs were begun. The MRI was ordered that day and it returned showing no acute intracranial process. Over the next 24 hours, the patient continued to do well. On the day of discharge having resolved her paresthesias in her arms and legs, moving well, rested well, no complaints, no headache and was finally able to be discharged home. DIAGNOSES AT THE TIME OF DISCHARGE: 1. TIA 2. Previous small medullary infarct. 3. Tobacco abuse. 4. Hypertension. 5. Urinary tract infection. 6. Migraine DISCHARGE MEDICATIONS: The patient was discharged on prescriptions for atorvastatin 10 mg at bedtime, ciprofloxacin 500 mg daily for 1 week, and Plavix 75 mg q. day. She was already on the Plavix and aspirin daily. Her other medications were continued as well. DISCHARGE INSTRUCTIONS: Her discharge instructions include to stop smoking, take her medications as directed, and follow up with Dr. Rodriguez in 1-2 weeks for reassessment. She is able to return to her usual activity, return to work, note from Wednesday04/11/2018 was written and she is discharged in stable condition. The time required to review the chart, examine the patient, and answered all the patient's questions then prepare discharge paperwork including dictation and writing prescriptions came to 35 minutes and all her medications were reconciled prior to discharge and she will see Dr. Rodriguez in 1-2 weeks. WENDY
== END 2018-04-09 09:50 | disposition home or self-care (01) | DRG 69 ==
LOC: ERS 12:38 → 2SE 14:52
PROVIDERS: ADMIT Specialist; ATTEND Specialist
DX: G45.9 Transient cerebral ischemic attack, unspecified (principal); N39.0 Urinary tract infection, site not specified; I10 Essential (primary) hypertension; F17.210 Nicotine dependence, cigarettes, uncomplicated; G43.909 Migraine, unspecified, not intractable, without status migrainosus; Z86.73 Personal history of transient ischemic attack (TIA), and cerebral infarction without residual deficits
CPT/HCPCS: 36415; 36416; 70450; 70496; 70498; 70551; 80053; 81003; 81015; 82553; 84484; 84703; 85025; 85610; 85730; 87086; 90471; 90732; 93005; G0009

== ENCOUNTER 2018-05-05 13:06 | Emergency (ER) | payer OTHER, SELFPAY ==
[2018-05-05] MEDS ORDERED: Metoclopramide HCl 10 MG TAB ONE (14:15)
[2018-05-05] MEDS ORDERED: Ketorolac Tromethamine 30 MG/ML VIAL ONE (14:15)
[2018-05-05 14:48] LABS: #Eosinphils 0.2 thou/uL (0.0-0.7); #Lymphocytes 2.2 thou/uL (1.20-3.40); #Monocytes 0.7 thou/uL (0.11-0.59); #Neutrophils 7.7 thou/uL (1.40-6.50); %Basophils 0.1 % (0.0-1.0); %Eosinophils 1.5 % (0.0-10.0); %Lymphocytes 20.4 % (21.0-51.0); %Monocytes 6.6 % (0.0-10.0); %Neutrophils 71.5 % (42.0-75.0); Hemoglobin 14.2 g/dL (12.0-16.0); Mean Corpuscular HGB CONC 35.2 g/dL (32.0-36.0); Mean Corpuscular Hemoglobin 36.6 pg (27.0-31.0); Platelet Count 324 thou/uL (130-400); RBC Distribution Width 11.1 % (11.5-14.5); Red Blood Cell (RBC) Count 3.88 mill/uL (4.20-5.40); White Blood Cell (WBC) Count 10.7 thou/uL (4.8-10.8)
[2018-05-05 15:08] LABS: ALT (SGPT) 14 U/L (8-55); AST (SGOT) 13 U/L (5-34); Albumin 3.8 g/dL (3.5-5.0); Alkaline Phosphatase 89 U/L (40-150); Anion Gap 9 mmol/L (10-20); BUN (Urea Nitrogen) 6 mg/dL (7.0-18.7); Bilirubin, Total 0.5 mg/dL (0.2-1.2); Calc. Creatinine Clearance 0 mL/min (70-130); Calcium 9.5 mg/dL (7.8-10.44); Carbon Dioxide 26 mmol/L (22-29); Chloride 108 mmol/L (98-107); Estimated GFR-MDRD Greater than 90; Globulin 3.1 g/dL (2.4-3.5); Glucose 95 mg/dL (70-105); Potassium 3.9 mmol/L (3.5-5.1); Protein, Total 6.9 g/dL (6.0-8.3); Sodium 139 mmol/L (136-145)
== END 2018-05-05 16:45 | disposition home or self-care (01) ==
LOC: ERS 13:06
DX: R51 Headache (principal); F32.9 Major depressive disorder, single episode, unspecified; Z87.891 Personal history of nicotine dependence; Z79.82 Long term (current) use of aspirin; Z79.899 Other long term (current) drug therapy
CPT/HCPCS: 36415; 80053; 85025; 93005; 96372; J1885

== ENCOUNTER 2018-06-18 10:15 | Emergency (ER) | payer OTHER ==
[2018-06-18] MEDS ORDERED: Ibuprofen 800 MG TAB ONE (11:16)
--- NOTE | 2018-06-18 12:40 | ULT ---
VENOUS DOPPLER ULTRASOUND OF THE LEFT LOWER EXTREMITY: History Pain in the left leg. TECHNIQUE: Nur scale ultrasound with color flow and spectral Doppler imaging of the deep venous system of the l eft lower extremity is performed. FINDINGS: There is good flow, compression, and augmentation noted in the left common femoral, femoral, deep fem oral, popliteal, posterior tibial, and greater saphenous veins. IMPRESSION: No evidence of deep vein thrombosis in the left lower extremity. POS: [facility]
--- NOTE | 2018-06-18 13:03 | RAD ---
LEFT ANKLE 3 VIEWS: HISTORY: Swelling and left ankle pain. FINDINGS: The ankle mortise is maintained. No acute fracture or dislocation is identified. There is an old avulsion fracture of the inferior tip of the lateral malleolus which was seen on the exam of 12/30/17. POS: [facility]
== END 2018-06-18 11:48 | disposition home or self-care (01) ==
LOC: ERS 10:15
DX: M79.89 Other specified soft tissue disorders (principal); F17.210 Nicotine dependence, cigarettes, uncomplicated; Z79.899 Other long term (current) drug therapy

== ENCOUNTER 2018-07-12 13:51 | Emergency (ER) | payer SELFPAY ==
[2018-07-12] MEDS ORDERED: Ketorolac Tromethamine 30 MG/ML VIAL ONE (15:26)
== END 2018-07-12 16:11 | disposition home or self-care (01) ==
LOC: ERS 13:51
DX: M54.42 Lumbago with sciatica, left side (principal); M25.562 Pain in left knee; R60.0 Localized edema; G62.9 Polyneuropathy, unspecified; F41.9 Anxiety disorder, unspecified; F17.210 Nicotine dependence, cigarettes, uncomplicated; Z79.899 Other long term (current) drug therapy
CPT/HCPCS: 96372; J1885

== ENCOUNTER 2018-09-08 09:05 | Emergency (ER) | payer SELFPAY ==
[2018-09-08] MEDS ORDERED: Oxymetazoline HCl 0.05% ( 15 ML ) ONE (10:05)
[2018-09-08] MEDS ORDERED: Acetaminophen 500 MG TAB ONE (10:05)
== END 2018-09-08 10:58 | disposition home or self-care (01) ==
LOC: ERS 09:05
DX: J02.9 Acute pharyngitis, unspecified (principal); F41.9 Anxiety disorder, unspecified; F17.210 Nicotine dependence, cigarettes, uncomplicated; Z79.899 Other long term (current) drug therapy
CPT/HCPCS: 87081; 87430; 87804; 99283

== ENCOUNTER 2018-10-20 14:25 | Emergency (ER) | payer SELFPAY ==
--- NOTE | 2018-10-20 15:48 | RAD ---
EXAM: RIGHT TIBIA AND FIBULA TWO VIEWS 10/20/18 HISTORY: 38-year-old female with history of trauma, injury while falling down stairs. There appears to be a fo silverio area of soft tissue swelling medially at the level of the proximal tibial diaphysis. No fracture, dislocation, or other significant acute osseous abnormality. IMPRESSION: No fracture or dislocation. POS: [facility]
[2018-10-20 16:21] LABS: #Basophils 0.1 thou/uL (0.0-0.2); #Eosinphils 0.1 thou/uL (0.0-0.7); #Lymphocytes 3.4 thou/uL (1.20-3.40); #Monocytes 0.8 thou/uL (0.11-0.59); #Neutrophils 7.8 thou/uL (1.40-6.50); %Basophils 0.5 % (0.0-1.0); %Eosinophils 1.2 % (0.0-10.0); %Lymphocytes 27.6 % (21.0-51.0); %Monocytes 6.7 % (0.0-10.0); Hemoglobin 14.2 g/dL (12.0-16.0); Mean Corpuscular HGB CONC 34.2 g/dL (32.0-36.0); Mean Corpuscular Hemoglobin 35.3 pg (27.0-31.0); Mean Platelet Volume 6.5 fL (7.4-10.4); Platelet Count 308 thou/uL (130-400); RBC Distribution Width 11.3 % (11.5-14.5); Red Blood Cell (RBC) Count 4.02 mill/uL (4.20-5.40); White Blood Cell (WBC) Count 12.1 thou/uL (4.8-10.8)
[2018-10-20 16:37] LABS: Anion Gap 11 mmol/L (10-20); BUN (Urea Nitrogen) 9 mg/dL (7.0-18.7); Calc. Creatinine Clearance 0 mL/min (70-130); Calcium 9.4 mg/dL (7.8-10.44); Carbon Dioxide 25 mmol/L (22-29); Chloride 110 mmol/L (98-107); Estimated GFR-MDRD Greater than 90; Glucose 86 mg/dL (70-105); Potassium 3.8 mmol/L (3.5-5.1); Sodium 142 mmol/L (136-145)
[2018-10-20] MEDS ORDERED: Ketorolac Tromethamine 30 MG/ML VIAL ONE (16:44)
== END 2018-10-20 17:00 | disposition home or self-care (01) ==
LOC: ERS 14:25
DX: S80.811A Abrasion, right lower leg, initial encounter (principal); M79.605 Pain in left leg; F41.9 Anxiety disorder, unspecified; F17.210 Nicotine dependence, cigarettes, uncomplicated; Z79.899 Other long term (current) drug therapy; W19.XXXA Unspecified fall, initial encounter
CPT/HCPCS: 36415; 80048; 85025; 96372; J1885

== ENCOUNTER 2018-12-08 09:49 | Emergency (ER) | payer SELFPAY ==
[2018-12-08] MEDS ORDERED: Cyclobenzaprine 10 MG TAB ONE (11:23)
[2018-12-08] MEDS ORDERED: Ibuprofen 800 MG TAB ONE (11:23)
[2018-12-08] MEDS ORDERED: Ketorolac Tromethamine 30 MG/ML VIAL ONE (11:30)
--- NOTE | 2018-12-08 11:31 | RAD ---
FRONTAL AND LATERAL IMAGING OF RIGHT TIBIA AND FIBULA: Date: 12/08/18 COMPARISON: None. HISTORY: Fall, trauma, pain. FINDINGS: The knee is not fully assessed on this examination, particularly on the lateral view. No displaced fr acture of the right tibia or fibula noted. IMPRESSION: No acute findings. POS: [facility]
== END 2018-12-08 11:50 | disposition home or self-care (01) ==
LOC: ERS 09:49
DX: S83.91XA Sprain of unspecified site of right knee, initial encounter (principal); S73.101A Unspecified sprain of right hip, initial encounter; F17.210 Nicotine dependence, cigarettes, uncomplicated; F41.9 Anxiety disorder, unspecified; Z79.899 Other long term (current) drug therapy; W10.9XXA Fall (on) (from) unspecified stairs and steps, initial encounter
CPT/HCPCS: 96372; J1885

== ENCOUNTER 2018-12-26 10:23 | Emergency (ER) | payer OTHER, SELFPAY | END 2018-12-26 12:06 | disposition home or self-care (01) | LOC: ERS 10:23 | DX: J06.9 Acute upper respiratory infection, unspecified (principal); F41.9 Anxiety disorder, unspecified; F17.210 Nicotine dependence, cigarettes, uncomplicated; Z86.73 Personal history of transient ischemic attack (TIA), and cerebral infarction without residual deficits; Z79.899 Other long term (current) drug therapy | CPT/HCPCS: 99281 ==

== ENCOUNTER 2019-05-01 13:16 | Emergency (ER) | payer OTHER ==
--- NOTE | 2019-05-01 16:03 | RAD ---
SINGLE VIEW OF THE CHEST: Comparison: 10-25-17 History: Left leg pain and chest pain. FINDINGS: Single view of the chest shows a normal sized cardiomediastinal silhouette. There is no evidence of c onsolidation, mass, or pleural effusion. The bones are unremarkable. IMPRESSION: No evidence of acute cardiopulmonary disease. POS: [facility]
[2019-05-01 16:24] LABS: Hemoglobin 13.6 g/dL (12.0-16.0); Mean Corpuscular HGB CONC 33.3 g/dL (32.0-36.0); Mean Corpuscular Hemoglobin 35.4 pg (27.0-31.0); Mean Platelet Volume 6.3 fL (7.4-10.4); Platelet Count 328 thou/uL (130-400); RBC Distribution Width 11.2 % (11.5-14.5); Red Blood Cell (RBC) Count 3.83 mill/uL (4.20-5.40); White Blood Cell (WBC) Count 12.5 thou/uL (4.8-10.8)
[2019-05-01 16:42] LABS: ALT (SGPT) 37 U/L (8-55); AST (SGOT) 21 U/L (5-34); Albumin 3.8 g/dL (3.5-5.0); Alkaline Phosphatase 101 U/L (40-150); Anion Gap 11 mmol/L (10-20); BUN (Urea Nitrogen) 8 mg/dL (7.0-18.7); Bilirubin, Total 0.3 mg/dL (0.2-1.2); CK (CPK) 88 U/L (29-168); Calc. Creatinine Clearance 0 mL/min (70-130); Calcium 9.1 mg/dL (7.8-10.44); Carbon Dioxide 28 mmol/L (22-29); Chloride 107 mmol/L (98-107); Estimated GFR-MDRD Greater than 90; Globulin 3.1 g/dL (2.4-3.5); Glucose 93 mg/dL (70-105); Lipase 36 U/L (8-78); Protein, Total 6.9 g/dL (6.0-8.3); Sodium 142 mmol/L (136-145)
[2019-05-01 16:44] LABS: #Eosinphils 0.2 thou/uL (0.0-0.7); #Lymphocytes 3.8 thou/uL (1.20-3.40); #Monocytes 0.9 thou/uL (0.11-0.59); #Neutrophils 7.6 thou/uL (1.40-6.50); %Basophils 0.2 % (0.0-1.0); %Eosinophils 1.7 % (0.0-10.0); %Lymphocytes 30.7 % (21.0-51.0); %Neutrophils 60.4 % (42.0-75.0); MDiff Complete? YES; Macrocytosis SLIGHT = 6-15 cells (100X) (0-5/hpf); Platelet Morphology Comment Appears Adequate
== END 2019-05-01 20:41 | disposition home or self-care (01) ==
LOC: ERS 13:16
DX: R07.89 Other chest pain (principal); F41.9 Anxiety disorder, unspecified; F17.210 Nicotine dependence, cigarettes, uncomplicated; Z86.73 Personal history of transient ischemic attack (TIA), and cerebral infarction without residual deficits
CPT/HCPCS: 36415; 71045; 80053; 82550; 83690; 84484; 85025; 85379; 93005

== ENCOUNTER 2019-09-06 21:37 | Emergency (ER) | payer OTHER ==
[2019-09-06 22:07] LABS: #Basophils 0.1 thou/uL (0.0-0.2); #Eosinphils 0.2 thou/uL (0.0-0.7); #Lymphocytes 4.9 thou/uL (1.20-3.40); #Neutrophils 7.4 thou/uL (1.40-6.50); %Basophils 0.5 % (0.0-1.0); %Eosinophils 1.8 % (0.0-10.0); %Monocytes 7.3 % (0.0-10.0); %Neutrophils 54.4 % (42.0-75.0); Hemoglobin 13.3 g/dL (12.0-16.0); Mean Corpuscular HGB CONC 34.2 g/dL (32.0-36.0); Mean Corpuscular Hemoglobin 35.6 pg (27.0-31.0); Mean Platelet Volume 6.4 fL (7.4-10.4); Platelet Count 363 thou/uL (130-400); Red Blood Cell (RBC) Count 3.74 mill/uL (4.20-5.40); White Blood Cell (WBC) Count 13.6 thou/uL (4.8-10.8)
[2019-09-06] MEDS ORDERED: Acetaminophen 500 MG TAB ONE (22:23)
[2019-09-06] MEDS ORDERED: diphenhydrAMINE 50 MG/ML VIAL ONE (22:23)
[2019-09-06] MEDS ORDERED: Metoclopramide HCl 10 MG/2 ML VIAL ONE (22:23)
[2019-09-06 22:30] LABS: ALT (SGPT) 17 U/L (8-55); AST (SGOT) 15 U/L (5-34); Albumin 3.9 g/dL (3.5-5.0); Alkaline Phosphatase 105 U/L (40-110); Anion Gap 12 mmol/L (10-20); BUN (Urea Nitrogen) 9 mg/dL (7.0-18.7); Bilirubin, Total 0.2 mg/dL (0.2-1.2); Calc. Creatinine Clearance 0 mL/min (70-130); Calcium 9.1 mg/dL (7.8-10.44); Carbon Dioxide 23 mmol/L (22-29); Chloride 108 mmol/L (98-107); Estimated GFR-MDRD Greater than 90; Glucose 102 mg/dL (70-105); Potassium 3.8 mmol/L (3.5-5.1); Protein, Total 6.9 g/dL (6.0-8.3); Sodium 139 mmol/L (136-145)
--- NOTE | 2019-09-06 22:39 | CT ---
CT head noncontrast HISTORY: Altered mental status. COMPARISON: 04/07/2018. FINDINGS: There is no evidence of acute intracranial hemorrhage or infarct. The ventricles appear nor mal in size, shape and position. There is no mass effect or shift of midline structures. Visualized paranasal sinuses remain well-aerated. IMPRESSION: No acute intracranial abnormalities are demonstrated.
== END 2019-09-06 23:49 | disposition home or self-care (01) ==
LOC: ERS 21:37
DX: I16.0 Hypertensive urgency (principal); R51 Headache; Z86.73 Personal history of transient ischemic attack (TIA), and cerebral infarction without residual deficits; F41.9 Anxiety disorder, unspecified; F17.210 Nicotine dependence, cigarettes, uncomplicated; Z79.899 Other long term (current) drug therapy; Z79.82 Long term (current) use of aspirin
CPT/HCPCS: 36415; 70450; 80053; 85025; 93005; J1200; J2765

== ENCOUNTER 2019-11-09 15:44 | Emergency (ER) | payer SELFPAY ==
--- NOTE | 2019-11-09 16:36 | RAD ---
EXAM: 3 views of the left ankle HISTORY: Ankle pain COMPARISON: 06/18/2018 FINDINGS: 3 views of the left ankle shows no evidence of acute fracture or dislocation. Moderate diff use soft tissue swelling is seen. No degenerative changes are present. IMPRESSION: No evidence of acute osseous abnormality.
== END 2019-11-09 17:29 | disposition home or self-care (01) ==
LOC: ERS 15:44
DX: S93.402A Sprain of unspecified ligament of left ankle, initial encounter (principal); F41.9 Anxiety disorder, unspecified; F17.210 Nicotine dependence, cigarettes, uncomplicated; Z71.6 Tobacco abuse counseling; Z79.899 Other long term (current) drug therapy; W01.0XXA Fall on same level from slipping, tripping and stumbling without subsequent striking against object, initial encounter
CPT/HCPCS: 99406

== ENCOUNTER 2020-07-14 16:19 | Observation (INO) | payer OTHER ==
[2020-07-14 17:03] LABS: #Eosinphils 0.2 thou/uL (0.0-0.7); #Lymphocytes 3.8 thou/uL (1.20-3.40); #Monocytes 0.9 thou/uL (0.11-0.59); #Neutrophils 7.6 thou/uL (1.40-6.50); %Basophils 0.3 % (0.0-1.0); %Eosinophils 1.9 % (0.0-10.0); %Lymphocytes 30.1 % (21.0-51.0); %Monocytes 7.2 % (0.0-10.0); %Neutrophils 60.6 % (42.0-75.0); Hemoglobin 13.8 g/dL (12.0-16.0); Mean Corpuscular HGB CONC 33.8 g/dL (32.0-36.0); Mean Corpuscular Hemoglobin 35.7 pg (27.0-31.0); Mean Platelet Volume 6.7 fL (7.4-10.4); Platelet Count 370 thou/uL (130-400); RBC Distribution Width 11.5 % (11.5-14.5); Red Blood Cell (RBC) Count 3.86 mill/uL (4.20-5.40); White Blood Cell (WBC) Count 12.6 thou/uL (4.8-10.8)
[2020-07-14] MEDS ORDERED: Nitroglycerin 0.4 MG TAB 1 EACH ONE (17:09)
[2020-07-14 17:16] LABS: MDiff Complete? YES; Macrocytosis SLIGHT = 6-15 cells (100X) (0-5/hpf); Platelet Morphology Comment Appears Adequate
[2020-07-14 17:25] LABS: ALT (SGPT) 23 U/L (8-55); AST (SGOT) 21 U/L (5-34); Albumin 3.9 g/dL (3.5-5.0); Alkaline Phosphatase 89 U/L (40-110); Anion Gap 14 mmol/L (10-20); BUN (Urea Nitrogen) 8 mg/dL (7.0-18.7); Bilirubin, Total 0.2 mg/dL (0.2-1.2); CK (CPK) 131 U/L (29-168); Calc. Creatinine Clearance 0 mL/min (70-130); Calcium 9.1 mg/dL (7.8-10.44); Carbon Dioxide 26 mmol/L (22-29); Chloride 107 mmol/L (98-107); Estimated GFR-MDRD 78; Globulin 3.4 g/dL (2.4-3.5); Glucose 84 mg/dL (70-105); Potassium 4.5 mmol/L (3.5-5.1); Protein, Total 7.3 g/dL (6.0-8.3); Sodium 142 mmol/L (136-145)
--- NOTE | 2020-07-14 18:01 | RAD ---
XR Chest 1 View Portable History: Chest pain Comparison: Radiograph April 2019 Findings: Lungs are clear. No pneumothorax or effusion. Cardiac silhouette and mediastinal contours a re within normal limits. No acute osseous abnormality. Impression: No acute intrathoracic abnormality.
[2020-07-14] MEDS ORDERED: Metoclopramide HCl 10 MG/2 ML VIAL ONE (19:43)
--- NOTE | 2020-07-14 20:07 | PDOC.FPRHP ---
- History of Present Illness Chief Complaint: CP History of Present Illness: Pt is a 40yo female with PMH of CAD w/ stent placement, CVAx3, HTN, HLD who presents with 2 days of CP. CP located in center of chest and radiates to left shoulder, feels sharp/stabbing, lasts 5 minutes, worse with activity, relieved with rest. Has associated nausea and SOB. Also c/o RAIN, edema, dizziness and blurry vision. Has not seen her PCP in at least a year due to change in insurance. She thinks her tack driller is Dr Ayala. She has run out of one of her BP medicines and has been cutting some of the other ones in half to make them last longer. BP at home was Ps of 215. Smokes 1 ppd for 20 years. C/o of vaginal bleeding. Had normal period at the beginning of the month and then started bleeding again one week later. Says she is passing large clots and changing pads more often than normal. Currently still bleeding. ED Course: Nitro SL, metoclopramide 10mg - Allergies/Adverse Reactions Allergies Allergy/AdvReac Type Severity Reaction Status Date / Time No Known Allergies Allergy Verified 07/14/20 23:21 - Home Medications Medication Instructions Recorded Confirmed Type Olmesartan [Benicar] 10 mg PO BID 04/17/15 07/14/20 History Topiramate [Topamax] 25 mg PO BID #30 tab 09/03/17 04/07/18 Rx Citalopram [CeleXA] 20 mg PO DAILY 04/07/18 07/14/20 History Clopidogrel Bisulfate [Clopidogrel] 75 mg PO DAILY 04/07/18 07/14/20 History Furosemide [Lasix] 40 mg PO DAILY 04/07/18 07/14/20 History Pregabalin [Lyrica] 100 mg PO BID 04/07/18 04/07/18 History Atorvastatin Calcium [Lipitor] 10 mg PO HS 30 Days tablet 04/09/18 07/14/20 Rx Aspirin [Ecotrin] 81 mg PO DAILY 07/14/20 07/14/20 History - History PMHx: CAD, HTN, HLD, CVAx3, pre-diabetes PSHx: cardiac stent, CS, tubal ligation, ovarian cyst, carpal tunnel FHx: non-contributory Social: smokes 1 ppdx20 years, no alcohol or drugs - Review of Systems General: denies: fever/chills, weight/appetite/sleep changes Eyes: reports: vision changes. denies: eye pain ENT: denies: nasal congestion, rhinorrhea Respiratory: reports: shortness of breath. denies: cough, congestion Cardiovascular: reports: chest pain, edema Gastrointestinal: reports: nausea. denies: vomiting, diarrhea, constipation, abdominal pain Genitourinary: reports: other (increased vaginal bleeding). denies: dysuria Skin: denies: rashes, lesions Musculoskeletal: reports: pain, tenderness (overlying chest) Neurological: denies: numbness, syncope Psychological: denies: anxiety, depression - Vital signs BP: 153/96, Pulse: 76, Resp: 14, Temp: 97.9, O2 sat: 96 on (Room Air) - Physical Exam Constitutional: NAD, awake, alert and oriented HEENT: normocephalic and atraumatic, no scleral icterus, grossly normal vision, grossly normal hearing, MMM Neck: supple, FROM, no JVD -Chest: Pain reproducible with palpation over sternum Heart: RRR, normal S1/S2, no murmurs/rubs/gallops -Heart: 2+ pitting edema of bilateral LE Lungs: CTAB, no respiratory distress Abdomen: soft -Abdomen: mild tenderness to palpation throughout, mild distention Musculoskeletal: normal structure, normal tone Neurological: no focal deficit Skin: no rash/lesions, no jaundice Psychiatric: normal mood and affect, intact recent and remote memory FMR H&P: Results - Labs Result Diagrams: 07/14/20 16:54 07/14/20 16:53 Lab results: WBC 12.6 thou/uL (4.8-10.8) H 07/14/20 16:54 Hgb 13.8 g/dL (12.0-16.0) 07/14/20 16:54 Hct 40.7 % (36.0-47.0) 07/14/20 16:54 MCV 106.0 fL (78.0-98.0) H 07/14/20 16:54 Plt Count 370 thou/uL (130-400) 07/14/20 16:54 Neutrophils % 60.6 % (42.0-75.0) 07/14/20 16:54 Sodium 142 mmol/L (136-145) 07/14/20 16:53 Potassium 4.5 mmol/L (3.5-5.1) 07/14/20 16:53 Chloride 107 mmol/L (98-107) 07/14/20 16:53 Carbon Dioxide 26 mmol/L (22-29) 07/14/20 16:53 BUN 8 mg/dL (7.0-18.7) 07/14/20 16:53 Creatinine 0.96 mg/dL (0.6-1.1) 07/14/20 16:53 Glucose 84 mg/dL (70-105) 07/14/20 16:53 Calcium 9.1 mg/dL (7.8-10.44) 07/14/20 16:53 Total Bilirubin 0.2 mg/dL (0.2-1.2) 07/14/20 16:53 AST 21 U/L (5-34) 07/14/20 16:53 ALT 23 U/L (8-55) 07/14/20 16:53 Alkaline Phosphatase 89 U/L (40-110) 07/14/20 16:53 Creatine Kinase 131 U/L (29-168) 07/14/20 16:53 Serum Total Protein 7.3 g/dL (6.0-8.3) 07/14/20 16:53 Albumin 3.9 g/dL (3.5-5.0) 07/14/20 16:53 - EKG Interpretation EKG: reviewed, sinus rhythm, no ST changes FMR H&P: A/P - Plan #typical CP -hx moderately suspicious for ACS, Heart Score 3, PE: pitting edema, pain reproducible with palpation -trop neg, CXR normal, ekg normal sinus rhythm with no ST changes -pending: BNP, Mag, TSH -ordered echo -stress test scheduled for am, NPO at midnight #Edema of LE -echo in 2017 showed EF 60-65% -will check BNP and order echo -likely due to patient not taking lasix -Lasix 40mg IV given, continue home meds #vaginal bleeding -pending serum preg test and ferritin -H/H stable -can workup outpatient #RAIN -hx of headaches treated with topamax -was given reglan in ED, resolved -continue home meds, tylenol prn #HTN -continue home meds -added hydralazine prn for SBP>180 -needs outpatient f/u #HLD -atorvastatin 40mg started -needs outpatient f/u #pre-diabetes -pending A1c #Hx of CVA -started home meds plavix and aspirin DVT ppx: SCD Diet: HH, NPO midnight Code: Full PCP: none Dispo: Admit tele obs, stress test in am, needs outpatient f/u for multiple chronic conditions, LOS<48hours FMR H&P: Upper Level - Plan Date/Time: 07/14/202006 Ms Balderas is a 40yo female with pmh of CVA x3, HTN, Tobacco use presents with chest pain of 2 days duration. Chest pain is worse with exertion, relieved with rest and associated with nausea. Endorses dizziness and lightheadedness. Denies vomiting, diaphoresis, radiation. Reports she has only been taking some of her medications due to running out and her prior PCP non longer accepts her insurance to obtain refills. PE: General: NAD CV: Nonreproducible CP. RRR no murmurs Pulm: CTA b/l Extremities: 2+ pitting edema b/l to knees Skin: No lesions A/P: Typical Chest Pain -Heart score: 3. EKG with no signs of ischemia. CXR no acute findings. Initial trop neg, continue to trend. Admit to tele. NPO at midnight for stress test in AM. Bilateral LE edema -Reports hx of CHF. Last echo [address] [employer] [address] Ayala. Ordered BNP. CXR with no acute findings. Will order echo. Resume PO Lasix. Strict I&Os. I, Chetna Martínez, have evaluated this patient and agree with findings/plan as outlined by internal specialist resident. Pertinent changes/additions are listed here. Addendum - Attending - Attending Attestation Date/Time: 07/15/20 0015 I personally evaluated the patient and discussed the management with Dr. Black/Mauricio. I agree with the History, Examination, Assessment and Plan documented above with any addition or exceptions noted below. 40-year-old Afro-[place] woman with past mental history of CVA 3, CAD, hypertension, hyperlipidemia, and history of migraine. Presented with substernal chest pain that started approximately 24 hours ago and has progressively worsened. Patient reports pain worse with deep respirations and movement. States that pain is resolved by lying on either 1 of her sides. Denies recent illness. She has been cutting her medicine in half in order to extend the amount of time she can take it. States she has had a recent change in insurance has been unable to follow-up with her PCP and is looking for a new primary care provider at this time. Exam was unremarkable with exception of elevated blood pressure in the emergency room and decreased air movement throughout.. The patient states that the nitroglycerin and Reglan she received in the ER did not change her symptoms.labs were within normal limits. EKG was unremarkable with exception of a small left axis deviation but otherwise normal intervals, no ST changes, no overt sign of ischemia. Observation status for typical chest pain suspect musculoskeletal. Repeat echocardiogram in the morning with nuclear medicine stress test ordered. We will give a single DuoNeb to see if this helps with her symptoms and improved air movement. If so will consider COPD exacerbation as part of her disease process and start oral steroids. Restarted home medications and administered a one-time dose of IV Lasix 40 mg to help with diuresis. Chron ic medical problems as above. Observation, telemetry, less than 2 midnights.
[2020-07-14] MEDS ORDERED: Acetaminophen 650 MG Suppository PR PRN (20:11)
[2020-07-14] MEDS ORDERED: Acetaminophen 325 MG TAB PO PRN (20:11)
[2020-07-14] MEDS ORDERED: Ondansetron ODT 4 MG TAB PO PRN (20:11)
[2020-07-14] MEDS ORDERED: Ondansetron PF 4 MG/2 ML Vial IVP PRN (20:11)
[2020-07-14] MEDS ORDERED: Furosemide 40 MG/4 ML VIAL SLOW IVP SCH (20:30)
[2020-07-14 20:52] LABS: Troponin I Less than 0.010 ng/mL (< 0.028)
[2020-07-14] MEDS ORDERED: Atorvastatin Calcium 40 MG TAB PO SCH (21:00)
[2020-07-14 21:23] LABS: BHCG - Serum Negative (NEGATIVE); Pregs Control Background? CLEAR/WHITE (CLR/WHITE); Pregs Control Bar Appear? YES (CONTROL BAR)
[2020-07-14 21:40] LABS: Ferritin 20.92 ng/mL (10-291)
[2020-07-14] MEDS ORDERED: hydrALAZINE 20 MG/ML VIAL SLOW IVP PRN (21:50)
[2020-07-14 23:12] VITALS: BMI 41.5
[2020-07-14 23:17] LABS: Hemoglobin A1c 4.7 % (4.0-6.0)
[2020-07-14 23:25] LABS: Troponin I Less than 0.010 ng/mL (< 0.028)
[2020-07-14] MEDS: Topiramate 25 MG TAB PO SCH (23:51)
[2020-07-15 04:55] LABS: #Eosinphils 0.2 thou/uL (0.0-0.7); #Monocytes 0.9 thou/uL (0.11-0.59); #Neutrophils 7.8 thou/uL (1.40-6.50); %Basophils 0.2 % (0.0-1.0); %Eosinophils 1.7 % (0.0-10.0); %Lymphocytes 25.2 % (21.0-51.0); %Monocytes 7.6 % (0.0-10.0); %Neutrophils 65.2 % (42.0-75.0); Hemoglobin 14.2 g/dL (12.0-16.0); Mean Corpuscular Hemoglobin 33.7 pg (27.0-31.0); Mean Platelet Volume 6.5 fL (7.4-10.4); Platelet Count 297 thou/uL (130-400); RBC Distribution Width 11.6 % (11.5-14.5); Red Blood Cell (RBC) Count 4.21 mill/uL (4.20-5.40)
[2020-07-15 05:00] LABS: Anion Gap 17 mmol/L (10-20); BUN (Urea Nitrogen) 11 mg/dL (7.0-18.7); Calc. Creatinine Clearance 141 mL/min (70-130); Carbon Dioxide 20 mmol/L (22-29); Chloride 108 mmol/L (98-107); Estimated GFR-MDRD 88; Glucose 97 mg/dL (70-105); Potassium 3.5 mmol/L (3.5-5.1); Sodium 141 mmol/L (136-145)
--- NOTE | 2020-07-15 07:16 | PDOC.FM ---
- Subjective Subjective: Patient feeling well this morning, no complaints. Says her chest pain has resolved. Denies any SOB, headache. Also thinks her swelling has improved after receiving the Lasix. Reports she had been cutting her Lasix pills in half at home. She is still having some vaginal bleeding, described as light with <1 pad/day. Discussed need for follow up to establish PCP and patient states her daughter follows with [facility]. - Objective MAR Reviewed: Yes Vital Signs & Weight: Vital Signs (12 hours) Temp Pulse Resp BP BP Pulse Ox 07/15/20 04:24 98.3 F 87 13 141/63 H 95 07/14/20 23:24 136/71 07/14/20 21:35 98.3 F 72 14 186/99 H 98 Weight Weight 102.875 kg I&O: 07/14/20 07/15/20 07/16/20 06:59 06:59 06:59 Intake Total 750 Output Total 2000 Balance -1250 Result Diagrams: 07/15/20 04:37 07/15/20 04:37 Phys Exam - Physical Examination Constitutional: NAD HEENT: moist MMs, sclera anicteric Neck: no JVD, supple, full ROM Respiratory: clear to auscultation bilateral Cardiovascular: RRR, no significant murmur Gastrointestinal: soft, non-tender, no distention, positive bowel sounds Musculoskeletal: pulses present 1+ pitting edema in bilateral LE Neurological: non-focal, normal sensation, moves all 4 limbs Psychiatric: normal affect, A&O x 3 Skin: no rash, normal turgor Dx/Plan (1) Heart failure with preserved ejection fraction Code(s): I50.30 - UNSPECIFIED DIASTOLIC (CONGESTIVE) HEART FAILURE Status: Acute Qualifiers: Heart failure chronicity: acute on chronic Qualified Code(s): I50.33 - Acute on chronic diastolic (congestive) heart failure (2) Chest pain, atypical Code(s): R07.89 - OTHER CHEST PAIN Status: Acute (3) Vaginal bleeding between periods Code(s): N92.3 - OVULATION BLEEDING Status: Acute (4) Hyperlipidemia Code(s): E78.5 - HYPERLIPIDEMIA, UNSPECIFIED Status: Acute Qualifiers: Hyperlipidemia type: mixed hyperlipidemia Qualified Code(s): E78.2 - Mixed hyperlipidemia (5) History of CVA (cerebrovascular accident) Code(s): Z86.73 - PRSNL HX OF TIA (TIA), AND CEREB INFRC W/O RESID DEFICITS Status: Acute - Plan Plan: Patient is a 40 yo female who presents with complaint of chest pain and swelling is admitted for ACS r/o: #ACS r/o with typical CP -hx moderately suspicious for ACS, Heart Score 3, PE: 2+ pitting edema, pain reproducible with palpation -trop neg, CXR normal, ekg normal sinus rhythm with no ST changes -BNP 25, Mag 1.8, TSH 0.63 -ECHO pending -stress test scheduled for am -hx of cardiac stent #Heart Failure with preserved EF -ECHO in 2017 showed EF 60-65% -takes Lasix 20 mg daily at home, but has been taking 10 mg for past month or so -has seen Dr. Ayala previously -BNP 25 -pitting edema on exam, improving this AM s/p 40 mg IV Lasix -continue home meds: Lasix #Vaginal bleeding, likely anovulatory -preg test neg -H/H stable -can workup outpatient #Headache -hx of headaches, treated with topamax at home but out of medication -was given reglan in ED, resolved -continue home meds, tylenol prn #HTN -continue home meds: Benicar -added hydralazine prn for SBP>180 -needs outpatient f/u #HLD -atorvastatin 40mg started -needs outpatient f/u #Pre-diabetes -patient told she had this in past but not on any diabetes meds -A1c is 4.7% #Hx of CVA -started home meds plavix and aspirin DVT ppx: SCD Diet: HH, NPO midnight Code: Full PCP: none Dispo: Admit to obs on telemetry unit. Plan for stress test this morning. Needs outpatient f/u for multiple chronic conditions. Anticipate discharge in next 24- 48 hours. Addendum - Attending - Attending Attestation Date/Time: 07/15/20 [id number] I discussed the management with Dr. Tran. I agree with the History, Examination, Assessment and Plan documented above with any addition or exceptions noted below.
[2020-07-15] MEDS: Topiramate 25 MG TAB PO SCH (08:33)
[2020-07-15] MEDS ORDERED: Clopidogrel Bisulfate 75 MG TAB PO SCH (09:00)
[2020-07-15] MEDS ORDERED: Aspirin 325 MG TAB PO SCH (09:00)
[2020-07-15] MEDS ORDERED: Citalopram 20 MG TAB PO SCH (09:00)
[2020-07-15] MEDS ORDERED: Losartan 25 MG TAB PO SCH (09:00)
[2020-07-15] MEDS ORDERED: Olmesartan 5 MG TAB PO SCH (09:00)
[2020-07-15] MEDS ORDERED: Aspirin 81 mg Enteric Coated Tablet PO SCH (09:00)
[2020-07-15] MEDS ORDERED: Furosemide 40 MG TAB PO SCH (09:00)
[2020-07-15 12:24] VITALS: BP 168/74; TEMP 97.7
--- NOTE | 2020-07-15 12:56 | NM ---
Radionucleotide stress only myocardial perfusion scan with CT attenuation correction and SPECT imagin g Left ventricular wall motion evaluation and ejection fraction HISTORY: Chest pain. FINDINGS: Adenosine protocol. Stress only imaging. Homogeneous uptake of radiotracer throughout the l eft ventricular myocardium. QGS analysis of gated SPECT images shows no focal wall motion abnormalities. Ejection fraction calcul ated at 75%. IMPRESSION : No evidence of ischemia. Normal LVEF.
[2020-07-15 13:28] LABS: SARS-CoV-2 MS2 Positive; SARS-CoV-2 N Gene Negative; SARS-CoV-2 S Gene Negative; SARS-CoV-2 by NAA Not Detected (NotDetected); SARS-CoV-2 orf1ab Negative
[2020-07-15] MEDS ORDERED: ADENOSINE 60 MG/20 ML VIAL ONE (14:58)
--- NOTE | 2020-07-16 11:17 | DIS ---
DATE OF ADMISSION: 07/14/2020 DATE OF DISCHARGE: 07/15/2020 ADMITTING ATTENDING: Scott Arias MD DISCHARGE ATTENDING: Evan Huerta MD RESIDENT: Rand Tran DO CONSULTS: None. PROCEDURES: 1. Chest x-ray on July 14, 2020: No acute intrathoracic abnormality. 2. Stress test on July 15, 2020: No evidence of ischemia. Ejection fraction calculated at 75%. 3. Echocardiogram on July 15, 2020: LVEF estimated at 55% to 60% percent. [id number] concentric left ventricular hypertrophy. Mild mitral regurgitation. Mild tricuspid regurgitation. PRIMARY DIAGNOSES: 1. Acute coronary syndrome ruled out, atypical chest pain. 2. Costochondritis. SECONDARY DIAGNOSES: 1. Heart failure with preserved ejection fraction. 2. Vaginal bleeding, likely anovulatory. 3. History of migraines. 4. Hypertension. 5. Hyperlipidemia. 6. Prediabetes. 7. History of cerebrovascular accident. DISCHARGE MEDICATIONS: 1. Plavix 75 mg p.o. daily. 2. Aspirin 81 mg p.o. daily. 3. Atorvastatin 40 mg p.o. at bedtime. 4. Olmesartan 10 mg p.o. b.i.d. 5. Citalopram 20 mg p.o. daily. 6. Furosemide 40 mg p.o. daily. 7. Topiramate 25 mg p.o. b.i.d. DISCONTINUED MEDICATIONS: None. HISTORY OF PRESENT ILLNESS/HOSPITAL COURSE: The patient is a 40-year-old female with a past medical history of CAD status post stent placement, CVA x3, hypertension, and hyperlipidemia, who presented with complaint of chest pain. Pain was located in the center of her chest and radiated down the left arm, it worsened with activity, it was relieved with rest. Had associated nausea and vomiting. The patient had not seen her PCP in at least a year and had been halving her medication tablets at home. The patient had a complaint of vaginal bleeding as well. The patient stated that she was bleeding in between her periods and having to change pads more often than normal. In the Emergency Department, the patient was given nitroglycerin and metoclopramide. She was transitioned to the telemetry unit for further monitoring. The patient's troponins were trended and were ultimately negative. EKG showed normal sinus rhythm with no ST changes, and chest x-ray was normal. The patient had an echocardiogram with results as above. The patient had a stress test completed on the morning of July 15, 2020, which showed no signs of ischemia. The patient's chest pain resolved without any further intervention. The patient was sent a 30-day supply of all of her home medications and instructed to follow up with either her old PCP or to establish care at [facility]. The patient will need an outpatient workup for vaginal bleeding. DISPOSITION: Stable. DISCHARGE INSTRUCTIONS: 1. Location: Home. 2. Diet: Heart healthy. 3. Activity: As tolerated. 4. Follow up with PCP or establish at [facility] in 2 to 3 days. Job ID: [id number] [facility]
== END 2020-07-15 17:49 | disposition home or self-care (01) ==
LOC: ERS 16:19 → 2SW 20:11
PROVIDERS: ADMIT Family Medicine; ATTEND Family Medicine
DX: R07.89 Other chest pain (principal); M94.0 Chondrocostal junction syndrome [Tietze]; I25.10 Atherosclerotic heart disease of native coronary artery without angina pectoris; I11.0 Hypertensive heart disease with heart failure; I50.33 Acute on chronic diastolic (congestive) heart failure; I08.1 Rheumatic disorders of both mitral and tricuspid valves; N92.3 Ovulation bleeding; R73.03 Prediabetes; E78.5 Hyperlipidemia, unspecified; F17.210 Nicotine dependence, cigarettes, uncomplicated; R60.0 Localized edema; R51 Headache; Z79.02 Long term (current) use of antithrombotics/antiplatelets; Z79.82 Long term (current) use of aspirin; Z79.899 Other long term (current) drug therapy; Z86.73 Personal history of transient ischemic attack (TIA), and cerebral infarction without residual deficits; Z95.5 Presence of coronary angioplasty implant and graft; Z20.828 Contact with and (suspected) exposure to other viral communicable diseases
CPT/HCPCS: 36415; 71045; 78452; 80048; 80053; 82550; 82728; 83036; 83735; 83880; 84443; 84484; 84703; 85025; 87635; 93005; 93017; 93306; 94640; 96365; 96376; A9500; G0378; J0153; J1940; J2765; J7620; U0003

== ENCOUNTER 2020-09-05 07:58 | Emergency (ER) | payer OTHER | END 2020-09-05 08:37 | disposition home or self-care (01) | LOC: ERS 07:58 | DX: H66.91 Otitis media, unspecified, right ear (principal); F41.9 Anxiety disorder, unspecified; F17.210 Nicotine dependence, cigarettes, uncomplicated; Z79.899 Other long term (current) drug therapy | CPT/HCPCS: 99282 ==

== ENCOUNTER 2021-01-03 23:30 | Emergency (ER) | payer OTHER ==
[2021-01-04] MEDS ORDERED: Boostrix 0.5 ML (Tdap) VIAL ONE (01:09)
== END 2021-01-04 01:18 | disposition home or self-care (01) ==
LOC: ERS 23:30
DX: S01.419A Laceration without foreign body of unspecified cheek and temporomandibular area, initial encounter (principal); Z86.73 Personal history of transient ischemic attack (TIA), and cerebral infarction without residual deficits; F17.210 Nicotine dependence, cigarettes, uncomplicated; Z79.82 Long term (current) use of aspirin; W22.8XXA Striking against or struck by other objects, initial encounter
CPT/HCPCS: 90471; 90715

== ENCOUNTER 2021-05-30 17:11 | Emergency (ER) | payer OTHER ==
[2021-05-30 17:42] LABS: #Basophils 0.1 thou/uL (0.0-0.2); #Eosinphils 0.3 thou/uL (0.0-0.7); #Lymphocytes 3.7 thou/uL (1.20-3.40); #Monocytes 0.7 thou/uL (0.11-0.59); %Basophils 0.5 % (0.0-1.0); %Eosinophils 2.5 % (0.0-10.0); %Lymphocytes 28.9 % (21.0-51.0); %Monocytes 5.1 % (0.0-10.0); Hemoglobin 13.3 g/dL (12.0-16.0); Red Blood Cell (RBC) Count 3.62 mill/uL (4.20-5.40); White Blood Cell (WBC) Count 12.7 thou/uL (4.8-10.8)
[2021-05-30 17:56] LABS: ALT (SGPT) 26 U/L (8-55); AST (SGOT) 17 U/L (5-34); Albumin 3.6 g/dL (3.5-5.0); Alkaline Phosphatase 96 U/L (40-110); Anion Gap 10 mmol/L (10-20); BUN (Urea Nitrogen) 8 mg/dL (7.0-18.7); Bilirubin, Total 0.2 mg/dL (0.2-1.2); Calc. Creatinine Clearance 0 mL/min (70-130); Calcium 9.3 mg/dL (7.8-10.44); Carbon Dioxide 24 mmol/L (22-29); Chloride 109 mmol/L (98-107); Globulin 3.3 g/dL (2.4-3.5); Glucose 99 mg/dL (70-105); Potassium 3.7 mmol/L (3.5-5.1); Protein, Total 6.9 g/dL (6.0-8.3); Sodium 139 mmol/L (136-145)
[2021-05-30 18:01] LABS: MDiff Complete? YES; Macrocytosis SLIGHT = 6-15 cells (100X) (0-5/hpf); Mean Corpuscular HGB CONC 34.5 g/dL (32.0-36.0); Mean Corpuscular Hemoglobin 36.8 pg (27.0-31.0); Mean Platelet Volume 6.5 fL (7.4-10.4); Platelet Count 348 thou/uL (130-400); Platelet Morphology Comment Appears Adequate; RBC Distribution Width 11.6 % (11.5-14.5)
== END 2021-05-30 18:40 | disposition home or self-care (01) ==
LOC: ERS 17:11
DX: I10 Essential (primary) hypertension (principal); R60.0 Localized edema; F17.210 Nicotine dependence, cigarettes, uncomplicated
CPT/HCPCS: 36415; 80053; 83880; 85025; 99283

== ENCOUNTER 2021-08-17 21:09 | Emergency (ER) | payer SELFPAY ==
[2021-08-17 21:42] LABS: Hemoglobin 13.6 g/dL (12.0-16.0); Mean Corpuscular HGB CONC 34.5 g/dL (32.0-36.0); Mean Corpuscular Hemoglobin 36.7 pg (27.0-31.0); Mean Platelet Volume 6.7 fL (7.4-10.4); Platelet Count 326 thou/uL (130-400); RBC Distribution Width 11.5 % (11.5-14.5); Red Blood Cell (RBC) Count 3.71 mill/uL (4.20-5.40)
[2021-08-17 21:58] LABS: ALT (SGPT) 21 U/L (8-55); AST (SGOT) 16 U/L (5-34); Albumin 3.7 g/dL (3.5-5.0); Alkaline Phosphatase 95 U/L (40-110); BUN (Urea Nitrogen) 9 mg/dL (7.0-18.7); Bilirubin, Total 0.3 mg/dL (0.2-1.2); Calc. Creatinine Clearance 0 mL/min (70-130); Calcium 9.1 mg/dL (7.8-10.44); Carbon Dioxide 22 mmol/L (22-29); Chloride 108 mmol/L (98-107); Glucose 153 mg/dL (70-105); Protein, Total 6.7 g/dL (6.0-8.3)
[2021-08-17 22:09] LABS: #Eosinphils 0.3 thou/uL (0.0-0.7); #Lymphocytes 4.7 thou/uL (1.20-3.40); #Monocytes 0.8 thou/uL (0.11-0.59); #Neutrophils 10.2 thou/uL (1.40-6.50); %Basophils 0.2 % (0.0-1.0); %Eosinophils 1.9 % (0.0-10.0); %Lymphocytes 29.2 % (21.0-51.0); %Neutrophils 63.7 % (42.0-75.0)
[2021-08-17 22:41] LABS: Sodium 138 mmol/L (136-145)
[2021-08-17 22:59] LABS: Anion Gap 12 mmol/L (10-20)
[2021-08-18] MEDS ORDERED: Morphine 4 MG/ML VIAL ONE (00:42)
== END 2021-08-18 01:54 | disposition home or self-care (01) ==
LOC: ERS 21:09
DX: S20.212A Contusion of left front wall of thorax, initial encounter (principal); M79.89 Other specified soft tissue disorders; W19.XXXA Unspecified fall, initial encounter; Z79.899 Other long term (current) drug therapy; Z79.82 Long term (current) use of aspirin; F17.210 Nicotine dependence, cigarettes, uncomplicated
CPT/HCPCS: 36415; 71045; 80053; 84484; 85025; 85379; 93005; 96372; J2270

== ENCOUNTER 2021-11-16 06:47 | Observation (INO) | payer OTHER ==
[2021-11-16 09:06] LABS: Hemoglobin 14.3 g/dL (12.0-16.0); Mean Corpuscular Hemoglobin 35.3 pg (27.0-31.0); Mean Platelet Volume 6.2 fL (7.4-10.4); Platelet Count 343 thou/uL (130-400); Red Blood Cell (RBC) Count 4.04 mill/uL (4.20-5.40); White Blood Cell (WBC) Count 12.4 thou/uL (4.8-10.8)
[2021-11-16 09:24] LABS: #Eosinphils 0.4 thou/uL (0.0-0.7); #Lymphocytes 3.4 thou/uL (1.20-3.40); #Monocytes 0.7 thou/uL (0.11-0.59); #Neutrophils 7.9 thou/uL (1.40-6.50); %Basophils 0.3 % (0.0-1.0); %Eosinophils 2.9 % (0.0-10.0); %Lymphocytes 27.2 % (21.0-51.0); %Monocytes 5.9 % (0.0-10.0); %Neutrophils 63.7 % (42.0-75.0); MDiff Complete? YES; Macrocytosis SLIGHT = 6-15 cells (100X) (0-5/hpf); Platelet Morphology Comment Appears Adequate
[2021-11-16] MEDS ORDERED: Aspirin 81 mg Enteric Coated Tablet ONE (09:31)
[2021-11-16 09:33] LABS: ALT (SGPT) 23 U/L (8-55); AST (SGOT) 15 U/L (5-34); Albumin 3.9 g/dL (3.5-5.0); Alkaline Phosphatase 94 U/L (40-110); Anion Gap 11 mmol/L (10-20); BUN (Urea Nitrogen) 8 mg/dL (7.0-18.7); Bilirubin, Total 0.4 mg/dL (0.2-1.2); Calc. Creatinine Clearance 0 mL/min (70-130); Calcium 8.8 mg/dL (7.8-10.44); Carbon Dioxide 28 mmol/L (22-29); Chloride 107 mmol/L (98-107); Glucose 101 mg/dL (70-105); Potassium 4.4 mmol/L (3.5-5.1); Protein, Total 6.9 g/dL (6.0-8.3); Sodium 142 mmol/L (136-145)
[2021-11-16] MEDS ORDERED: Calcium Carbonate 500 MG ChewTAB PO PRN (10:30)
[2021-11-16] MEDS ORDERED: Guaifenesin DM 100-10/5 ML UDCUP PO PRN (10:30)
[2021-11-16] MEDS ORDERED: Senokot S 8.6-50 MG TAB PO PRN (10:30)
[2021-11-16] MEDS ORDERED: Ondansetron PF 4 MG/2 ML Vial IVP PRN (10:30)
[2021-11-16] MEDS ORDERED: Acetaminophen 325 MG TAB PO PRN (10:30)
[2021-11-16] MEDS ORDERED: Iopamidol 370 76% 50 ML VIAL FS ONE (10:57)
[2021-11-16 11:09] LABS: Acetaminophen Less than 6.0 mcg/mL (10.0-30.0); Alcohol Less than 10 mg/dL (Less than 10); Salicylate Less than 8.0 mg/dL (15.0-30.0)
[2021-11-16 17:01] LABS: SARS-CoV-2 PCR by NAA Not Detected (NotDetected)
[2021-11-16] MEDS ORDERED: HYDROcodone/Acetaminophen 5/325 mg Tablet ONE (18:05)
[2021-11-16] MEDS: HYDROcodone/Acetaminophen 5/325 mg Tablet PO PRN ×2 (18:06→22:15)
[2021-11-16] MEDS: Rosuvastatin 20 MG TAB PO SCH (22:14)
[2021-11-16] MEDS: Famotidine 20 MG TAB PO SCH (22:14)
[2021-11-16] MEDS: Topiramate 25 MG TAB PO SCH (22:15)
[2021-11-16 22:50] VITALS: BMI 40.6
[2021-11-17 07:24] LABS: #Eosinphils 0.3 thou/uL (0.0-0.7); #Lymphocytes 3.9 thou/uL (1.20-3.40); #Monocytes 0.8 thou/uL (0.11-0.59); #Neutrophils 6.1 thou/uL (1.40-6.50); %Basophils 0.1 % (0.0-1.0); %Eosinophils 2.9 % (0.0-10.0); %Lymphocytes 35.2 % (21.0-51.0); %Neutrophils 54.8 % (42.0-75.0); Hemoglobin 12.9 g/dL (12.0-16.0); Mean Corpuscular HGB CONC 31.2 g/dL (32.0-36.0); Mean Corpuscular Hemoglobin 33.7 pg (27.0-31.0); Mean Platelet Volume 6.4 fL (7.4-10.4); Platelet Count 348 thou/uL (130-400); RBC Distribution Width 11.1 % (11.5-14.5); Red Blood Cell (RBC) Count 3.83 mill/uL (4.20-5.40); White Blood Cell (WBC) Count 11.1 thou/uL (4.8-10.8)
[2021-11-17 07:45] LABS: Anion Gap 9 mmol/L (10-20); BUN (Urea Nitrogen) 11 mg/dL (7.0-18.7); Calc. Creatinine Clearance 155 mL/min (70-130); Carbon Dioxide 25 mmol/L (22-29); Cardiac Risk 3.1 (Less than 4.5); Chloride 109 mmol/L (98-107); Cholesterol 110 mg/dl (< 200 Desired); Glucose 98 mg/dL (70-105); HDL Cholesterol 35 mg/dL (>60 Neg Risk); LDL Cholesterol, Calculated 55 mg/dL; Potassium 3.7 mmol/L (3.5-5.1); Sodium 139 mmol/L (136-145); Triglycerides 98 mg/dL (Less than 150)
[2021-11-17] MEDS: Enoxaparin Sodium 40 MG/0.4 ML SYRINGE SC SCH (09:31)
[2021-11-17] MEDS: Famotidine 20 MG TAB PO SCH ×2 (09:32→20:33)
[2021-11-17] MEDS: Aspirin 81 mg Enteric Coated Tablet PO SCH (09:35)
[2021-11-17] MEDS: Citalopram 20 MG TAB PO SCH (09:35)
[2021-11-17] MEDS: Clopidogrel Bisulfate 75 MG TAB PO SCH (09:36)
[2021-11-17] MEDS: Topiramate 25 MG TAB PO SCH ×2 (09:36→20:33)
[2021-11-17] MEDS: Folic Acid 1 MG TAB PO SCH (09:36)
[2021-11-17 10:29] LABS: Amphetamine Not Detected (NotDetected); Barbiturates Screen Not Detected (NotDetected); Benzodiazepine Screen Not Detected (NotDetected); Cocaine Metabolite Screen Not Detected (NotDetected); Methadone Not Detected (NotDetected); Methamphetamine Detected (NotDetected); Opiate Screen Detected (NotDetected); Oxycodone Screen Not Detected (NotDetected); Phencyclidine (PCP) Not Detected (NotDetected); THC/Cannabinoid Screen Not Detected (NotDetected); Tricyclic Screen Not Detected (NotDetected)
[2021-11-17] MEDS: HYDROcodone/Acetaminophen 5/325 mg Tablet PO PRN (20:32)
[2021-11-17] MEDS: Rosuvastatin 20 MG TAB PO SCH (20:33)
[2021-11-18] MEDS: Citalopram 20 MG TAB PO SCH (09:04)
[2021-11-18] MEDS: Aspirin 81 mg Enteric Coated Tablet PO SCH (09:04)
[2021-11-18] MEDS: Famotidine 20 MG TAB PO SCH (09:05)
[2021-11-18] MEDS: Enoxaparin Sodium 40 MG/0.4 ML SYRINGE SC SCH (09:05)
[2021-11-18] MEDS: Topiramate 25 MG TAB PO SCH (09:06)
[2021-11-18] MEDS: Folic Acid 1 MG TAB PO SCH (09:06)
[2021-11-18] MEDS: Clopidogrel Bisulfate 75 MG TAB PO SCH (09:06)
[2021-11-18 11:59] VITALS: BP 117/86; TEMP 98.1
== END 2021-11-18 16:30 | disposition home or self-care (01) ==
LOC: ERS 06:47 → ERHOLD 09:50 → NEURO 19:12
PROVIDERS: ADMIT Internal Medicine; ATTEND Internal Medicine
DX: G45.9 Transient cerebral ischemic attack, unspecified (principal); I16.1 Hypertensive emergency; I11.9 Hypertensive heart disease without heart failure; E78.2 Mixed hyperlipidemia; G89.29 Other chronic pain; M54.9 Dorsalgia, unspecified; F17.210 Nicotine dependence, cigarettes, uncomplicated; M48.02 Spinal stenosis, cervical region; I08.1 Rheumatic disorders of both mitral and tricuspid valves; E66.9 Obesity, unspecified; Z68.41 Body mass index [BMI] 40.0-44.9, adult; Z86.73 Personal history of transient ischemic attack (TIA), and cerebral infarction without residual deficits; Z79.02 Long term (current) use of antithrombotics/antiplatelets; Z79.82 Long term (current) use of aspirin; Z79.899 Other long term (current) drug therapy; Z20.822 Contact with and (suspected) exposure to COVID-19
CPT/HCPCS: 36415; 51798; 70450; 70496; 70498; 70551; 72141; 80048; 80053; 80061; 80306; 80307; 82607; 82746; 84484; 85025; 93005; 93306; 96372; G0378; J1650; Q9967; U0003; U0005

== ENCOUNTER 2021-12-02 09:12 | Outpatient (CLI) | payer OTHER ==
[2021-12-02 18:55] LABS: SARS-CoV-2 PCR by NAA Not Detected (NotDetected)
== END 2021-12-02 09:13 | disposition home or self-care (01) ==
LOC: LABBT 09:12
PROVIDERS: ATTEND Neurological Surgery
DX: Z01.812 Encounter for preprocedural laboratory examination (principal); G56.02 Carpal tunnel syndrome, left upper limb; Z20.822 Contact with and (suspected) exposure to COVID-19; M25.532 Pain in left wrist; M79.642 Pain in left hand
CPT/HCPCS: U0003; U0005

== ENCOUNTER 2021-12-02 10:06 | Outpatient (CLI) | payer OTHER | END 2021-12-02 10:07 | disposition home or self-care (01) | LOC: BICRAD 10:06 | PROVIDERS: ATTEND Neurological Surgery | DX: M25.532 Pain in left wrist (principal); M79.642 Pain in left hand ==

== ENCOUNTER 2021-12-05 06:16 | Day surgery (SDC) | payer OTHER ==
[2021-11-26 13:55] VITALS: BMI 39.9
[2021-12-05] MEDS ORDERED: Dexmedetomidine 200 MCG/2 ML VIAL ONE (06:22)
[2021-12-05] MEDS ORDERED: Xylocaine 1% w/ Epi 1:100K 10 ML VIAL ONE (06:38)
[2021-12-05] MEDS ORDERED: Midazolam HCl 2 mg/2 ml Vial ONE (06:57)
[2021-12-05] MEDS ORDERED: ceFAZolin 2 GM/Dextrose 50 ML IVPB ONE (06:57)
[2021-12-05] MEDS ORDERED: Dexamethasone 20 MG/5 ML VIAL ONE (07:13)
[2021-12-05] MEDS ORDERED: Lidocaine 1% PF 5 ML VIAL ONE (07:13)
[2021-12-05] MEDS ORDERED: Ketorolac Tromethamine 30 MG/ML VIAL ONE (07:13)
[2021-12-05] MEDS ORDERED: Ondansetron PF 4 MG/2 ML Vial ONE (07:13)
[2021-12-05] MEDS ORDERED: PROPOFOL 200 MG/20 ML VIAL ONE (07:13)
[2021-12-05] MEDS ORDERED: PHENYLEPHRINE-NS 100 MCG/ML 10 ML SYRINGE ONE (07:13)
== END 2021-12-05 10:53 | disposition home or self-care (01) ==
LOC: SDC 06:16
PROVIDERS: ATTEND Neurological Surgery
PROC: 01N50ZZ Release Median Nerve, Open Approach (ICD-10-PCS; principal; 2021-12-05)
DX: G56.02 Carpal tunnel syndrome, left upper limb (principal); F17.210 Nicotine dependence, cigarettes, uncomplicated; I10 Essential (primary) hypertension; Z86.73 Personal history of transient ischemic attack (TIA), and cerebral infarction without residual deficits; Z79.02 Long term (current) use of antithrombotics/antiplatelets; Z79.82 Long term (current) use of aspirin; Z79.899 Other long term (current) drug therapy
CPT/HCPCS: J0690; J1100; J1885; J2250; J2405; J2704

== ENCOUNTER 2022-01-31 22:20 | Emergency (ER) | payer OTHER ==
[2022-02-01] MEDS ORDERED: Xylocaine 1% w/ Epi 1:100K 10 ML VIAL ONE (00:10)
[2022-02-01] MEDS ORDERED: Ondansetron ODT 4 MG TAB ONE (00:43)
== END 2022-02-01 01:03 | disposition home or self-care (01) ==
LOC: ERS 22:20
DX: L02.31 Cutaneous abscess of buttock (principal); I10 Essential (primary) hypertension; E78.5 Hyperlipidemia, unspecified; Z86.73 Personal history of transient ischemic attack (TIA), and cerebral infarction without residual deficits; G43.909 Migraine, unspecified, not intractable, without status migrainosus; F17.210 Nicotine dependence, cigarettes, uncomplicated; Z79.899 Other long term (current) drug therapy; Z79.82 Long term (current) use of aspirin
CPT/HCPCS: 10060; Q0162

== ENCOUNTER 2022-04-02 13:30 | Emergency (ER) | payer OTHER ==
[2022-04-02] MEDS ORDERED: Acetaminophen 500 MG TAB ONE (14:16)
[2022-04-02] MEDS ORDERED: Metoclopramide HCl 10 MG/2 ML VIAL ONE (14:16)
[2022-04-02] MEDS ORDERED: diphenhydrAMINE 50 MG/ML VIAL ONE (14:16)
[2022-04-02 14:31] LABS: Bacteria/HPF None Seen HPF (None Seen); Bilirubin Negative (Negative); Blood, Urine 1+ (Negative); Clarity Clear (Clear); Glucose, Urine (Dipstick) Normal (Negative); Ketone, Urine Negative (Negative); Leukocyte Negative Leu/uL (Negative); Nitrite Negative (Negative); Protein, Urine (Dipstick) Negative (Neg-Trace); RBC/HPF 0-3 HPF (0-3); Specific Gravity, Urine 1.021 (1.002-1.036); Squamous Epithelial 0-3 HPF (0-3); Urobilinogen Normal mg/dL (Less than 2); WBC/HPF 0-3 HPF (0-3)
[2022-04-02 14:32] LABS: Pregnancy Test - Urine (BHCG) Negative (Negative); Pregu Control Background? CLEAR/WHITE (CLR/WHITE); Pregu Control Bar Appear? YES (CONTROL BAR); Specific Gravity 1.021 (1.002-1.036)
[2022-04-02 14:59] LABS: #Eosinphils 0.3 thou/uL (0.0-0.7); #Lymphocytes 3.3 thou/uL (1.20-3.40); #Monocytes 0.6 thou/uL (0.11-0.59); #Neutrophils 6.6 thou/uL (1.40-6.50); %Basophils 0.4 % (0.0-1.0); %Lymphocytes 30.7 % (21.0-51.0); %Monocytes 5.7 % (0.0-10.0); %Neutrophils 60.3 % (42.0-75.0); Hemoglobin 13.5 g/dL (12.0-16.0); Mean Corpuscular HGB CONC 33.2 g/dL (32.0-36.0); Mean Corpuscular Hemoglobin 36.2 pg (27.0-31.0); Platelet Count 333 thou/uL (130-400); RBC Distribution Width 11.5 % (11.5-14.5); Red Blood Cell (RBC) Count 3.75 mill/uL (4.20-5.40); White Blood Cell (WBC) Count 10.9 thou/uL (4.8-10.8)
[2022-04-02 15:29] LABS: MDiff Complete? YES; Macrocytosis SLIGHT = 6-15 cells (100X) (0-5/hpf); Platelet Morphology Comment Appears Adequate
[2022-04-02] MEDS ORDERED: Magnesium 2 GM/50 ML BAG (IN WATER) ONE (16:13)
[2022-04-02 16:44] LABS: Albumin 3.7 g/dL (3.5-5.0)
[2022-04-02 16:45] LABS: Chloride 111 mmol/L (98-107); Potassium 3.8 mmol/L (3.5-5.1); Sodium 141 mmol/L (136-145)
[2022-04-02 16:46] LABS: Calcium 8.8 mg/dL (7.8-10.44)
[2022-04-02 16:47] LABS: Globulin 3.1 g/dL (2.4-3.5); Glucose 93 mg/dL (70-105); Protein, Total 6.8 g/dL (6.0-8.3)
[2022-04-02 16:48] LABS: Anion Gap 11 mmol/L (10-20); Bilirubin, Total 0.3 mg/dL (0.2-1.2); Carbon Dioxide 23 mmol/L (22-29)
[2022-04-02 16:49] LABS: Alkaline Phosphatase 99 U/L (40-110)
[2022-04-02 16:50] LABS: Calc. Creatinine Clearance 0 mL/min (70-130)
[2022-04-02 16:51] LABS: BUN (Urea Nitrogen) 6 mg/dL (7.0-18.7)
[2022-04-02 16:52] LABS: ALT (SGPT) 31 U/L (8-55); AST (SGOT) 24 U/L (5-34)
== END 2022-04-02 17:20 | disposition home or self-care (01) ==
LOC: ERS 13:30
DX: R51.9 Headache, unspecified (principal); I10 Essential (primary) hypertension; E78.5 Hyperlipidemia, unspecified; F17.210 Nicotine dependence, cigarettes, uncomplicated; N83.209 Unspecified ovarian cyst, unspecified side; Z86.73 Personal history of transient ischemic attack (TIA), and cerebral infarction without residual deficits; Z79.82 Long term (current) use of aspirin; Z79.899 Other long term (current) drug therapy
CPT/HCPCS: 36415; 71045; 80053; 81003; 81015; 81025; 83880; 84484; 85025; 93005; 94760; 96365; 96367; 96375; J1200; J2765; J3475

== ENCOUNTER 2022-04-20 11:03 | Outpatient (CLI) | payer OTHER | END 2022-04-20 11:04 | disposition home or self-care (01) | LOC: TBSIIMAG 11:03 | PROVIDERS: ATTEND Neurological Surgery | DX: M54.12 Radiculopathy, cervical region (principal); M48.02 Spinal stenosis, cervical region | CPT/HCPCS: 72141 ==

== ENCOUNTER 2022-05-25 21:06 | Emergency (ER) | payer OTHER ==
[2022-05-25] MEDS ORDERED: Acetaminophen 325 MG TAB ONE (21:37)
== END 2022-05-25 23:19 | disposition home or self-care (01) ==
LOC: ERS 21:06
DX: S50.12XA Contusion of left forearm, initial encounter (principal); S93.402A Sprain of unspecified ligament of left ankle, initial encounter; I10 Essential (primary) hypertension; E78.5 Hyperlipidemia, unspecified; F17.210 Nicotine dependence, cigarettes, uncomplicated; Z86.73 Personal history of transient ischemic attack (TIA), and cerebral infarction without residual deficits; Z79.01 Long term (current) use of anticoagulants; Z79.899 Other long term (current) drug therapy; Z79.82 Long term (current) use of aspirin; W10.9XXA Fall (on) (from) unspecified stairs and steps, initial encounter

== ENCOUNTER 2022-08-10 10:47 | Emergency (ER) | payer OTHER | END 2022-08-10 12:00 | disposition home or self-care (01) | LOC: ERS 10:47 | DX: J06.9 Acute upper respiratory infection, unspecified (principal); I10 Essential (primary) hypertension; E78.5 Hyperlipidemia, unspecified; F17.210 Nicotine dependence, cigarettes, uncomplicated; Z79.82 Long term (current) use of aspirin; Z79.899 Other long term (current) drug therapy | CPT/HCPCS: 99283 ==

== ENCOUNTER 2022-08-12 09:16 | Emergency (ER) | payer OTHER | END 2022-08-12 10:20 | disposition home or self-care (01) | LOC: ERS 09:16 | DX: J32.0 Chronic maxillary sinusitis (principal); B96.89 Other specified bacterial agents as the cause of diseases classified elsewhere; I10 Essential (primary) hypertension; F17.210 Nicotine dependence, cigarettes, uncomplicated; Z86.73 Personal history of transient ischemic attack (TIA), and cerebral infarction without residual deficits | CPT/HCPCS: 99283 ==

== ENCOUNTER 2022-12-19 17:50 | Emergency (ER) | payer OTHER ==
[~2022-12-19 17:50] MED LIST changes: -ISOVUE-370 76%-LOCM 1 ML ONE; +Iopamidol-370 76% 500 ML 1 ML ONE
[2022-12-19] MEDS ORDERED: Ketorolac Tromethamine 30 MG/ML VIAL ONE ×2 (18:11→23:30)
[2022-12-19] MEDS ORDERED: Ondansetron PF 4 MG/2 ML Vial ONE (18:11)
[2022-12-19 19:08] LABS: #Basophils 0.1 thou/uL (0.0-0.2); #Lymphocytes 2.1 thou/uL (1.20-3.40); #Monocytes 0.4 thou/uL (0.11-0.59); #Neutrophils 13.6 thou/uL (1.40-6.50); %Basophils 0.4 % (0.0-1.0); %Eosinophils 0.3 % (0.0-10.0); %Monocytes 2.5 % (0.0-10.0); %Neutrophils 83.9 % (42.0-75.0); Hemoglobin 14.3 g/dL (12.0-16.0); Mean Corpuscular HGB CONC 33.6 g/dL (32.0-36.0); Mean Platelet Volume 6.6 fL (7.4-10.4); Platelet Count 402 10x3/uL (130-400); RBC Distribution Width 11.6 % (11.5-14.5); Red Blood Cell (RBC) Count 4.09 mill/uL (4.20-5.40); White Blood Cell (WBC) Count 16.2 10x3/uL (4.8-10.8)
[2022-12-19 19:10] LABS: BHCG - Serum Negative (NEGATIVE); Pregs Control Background? CLEAR/WHITE (CLR/WHITE); Pregs Control Bar Appear? YES (CONTROL BAR)
[2022-12-19 19:30] LABS: ALT (SGPT) 24 U/L (8-55); AST (SGOT) 15 U/L (5-34); Albumin 4.3 g/dL (3.5-5.0); Alkaline Phosphatase 119 U/L (40-110); Anion Gap 13 mmol/L (10-20); BUN (Urea Nitrogen) 8 mg/dL (7.0-18.7); Bilirubin, Total 0.4 mg/dL (0.2-1.2); Calc. Creatinine Clearance 0 mL/min (70-130); Calcium 9.4 mg/dL (7.8-10.44); Carbon Dioxide 22 mmol/L (22-29); Chloride 105 mmol/L (98-107); Estimated GFR 93; Globulin 3.5 g/dL (2.4-3.5); Glucose 116 mg/dL (70-105); Lipase 11 U/L (8-78); Potassium 3.6 mmol/L (3.5-5.1); Protein, Total 7.8 g/dL (6.0-8.3); Sodium 136 mmol/L (136-145)
[2022-12-19] MEDS ORDERED: Morphine 4 MG/ML VIAL ONE (20:14)
[2022-12-19 20:26] LABS: Bilirubin Negative (Negative); Blood, Urine Negative (Negative); Clarity Clear (Clear); Glucose, Urine (Dipstick) Normal (Negative); Ketone, Urine Negative (Negative); Leukocyte Negative Leu/uL (Negative); Nitrite Negative (Negative); Protein, Urine (Dipstick) Negative (Neg-Trace); Specific Gravity, Urine 1.034 (1.002-1.036); Urobilinogen Normal mg/dL (Less than 2)
[2022-12-19 20:27] LABS: Pregnancy Test - Urine (BHCG) Negative (Negative); Pregu Control Background? CLEAR/WHITE (CLR/WHITE); Pregu Control Bar Appear? YES (CONTROL BAR); Specific Gravity 1.034 (1.002-1.036)
[2022-12-19] MEDS ORDERED: Fentanyl 100 MCG/2 ML VIAL ONE (21:42)
== END 2022-12-20 | disposition short-term general hospital (02) ==
LOC: ERS 17:50
DX: N83.201 Unspecified ovarian cyst, right side (principal); D72.829 Elevated white blood cell count, unspecified; I10 Essential (primary) hypertension; E78.5 Hyperlipidemia, unspecified; F17.210 Nicotine dependence, cigarettes, uncomplicated
CPT/HCPCS: 74177; 76856; 80053; 81003; 81025; 83690; 84703; 85025; 96361; 96374; 96375; 96376; J1885; J2270; J2405; J3010; Q9967

== ENCOUNTER 2023-02-24 09:01 | Emergency (ER) | payer OTHER ==
[2023-02-24] MEDS ORDERED: Ketorolac Tromethamine 30 MG/ML VIAL ONE (10:35)
[2023-02-24 16:58] LABS: Bilirubin Negative (Negative); Blood, Urine Negative (Negative); Clarity Clear (Clear); Glucose, Urine (Dipstick) Normal (Negative); Ketone, Urine Negative (Negative); Leukocyte Negative Leu/uL (Negative); Nitrite Negative (Negative); Protein, Urine (Dipstick) Negative (Neg-Trace); Specific Gravity, Urine 1.022 (1.002-1.036); Urobilinogen Normal mg/dL (Less than 2)
== END 2023-02-24 12:54 | disposition home or self-care (01) ==
LOC: ERS 09:01
DX: M54.50 Low back pain, unspecified (principal); I11.0 Hypertensive heart disease with heart failure; I50.9 Heart failure, unspecified; F17.210 Nicotine dependence, cigarettes, uncomplicated
CPT/HCPCS: 81003; 96372; 99283; J1885

== ENCOUNTER 2023-06-10 09:15 | Emergency (ER) | payer BC, OTHER ==
[2023-06-10] MEDS ORDERED: Ketorolac Tromethamine 30 MG/ML VIAL ONE (10:01)
[2023-06-10] MEDS ORDERED: Aspirin Chewable 81 MG TAB ONE ×2 (10:02)
[2023-06-10 10:22] LABS: #Eosinphils 0.2 thou/uL (0.0-0.7); #Monocytes 0.7 thou/uL (0.11-0.59); #Neutrophils 6.4 thou/uL (1.40-6.50); %Basophils 0.3 % (0.0-1.0); %Eosinophils 2.3 % (0.0-10.0); %Lymphocytes 27.8 % (21.0-51.0); %Monocytes 6.6 % (0.0-10.0); %Neutrophils 62.7 % (42.0-75.0); Hematocrit 39.1 % (36.0-47.0); Hemoglobin 12.6 g/dL (12.0-16.0); Mean Corpuscular HGB CONC 32.2 g/dL (32.0-36.0); Mean Corpuscular Hemoglobin 32.8 pg (27.0-31.0); Mean Corpuscular Volume 101.8 fl (78.0-98.0); Mean Platelet Volume 8.7 fL (7.4-10.4); Platelet Count 422 10x3/uL (130-400); Red Blood Cell (RBC) Count 3.84 mill/uL (4.20-5.40); White Blood Cell (WBC) Count 10.3 10x3/uL (4.8-10.8)
[2023-06-10 10:40] LABS: Anion Gap 11 mmol/L (10-20); BUN (Urea Nitrogen) 9 mg/dL (7.0-18.7); Calc. Creatinine Clearance 0 mL/min (70-130); Calcium 9.4 mg/dL (7.8-10.44); Carbon Dioxide 26 mmol/L (22-29); Chloride 107 mmol/L (98-107); Estimated GFR 89; Glucose 103 mg/dL (70-105); Potassium 4.4 mmol/L (3.5-5.1); Sodium 140 mmol/L (136-145)
[2023-06-10 10:45] LABS: Troponin I Less than 0.010 ng/mL (< 0.028)
== END 2023-06-10 11:38 | disposition home or self-care (01) ==
LOC: ERS 09:15
DX: R07.9 Chest pain, unspecified (principal); M62.838 Other muscle spasm; I11.0 Hypertensive heart disease with heart failure; I50.9 Heart failure, unspecified; F17.210 Nicotine dependence, cigarettes, uncomplicated; Z79.899 Other long term (current) drug therapy; Z79.82 Long term (current) use of aspirin; Z79.01 Long term (current) use of anticoagulants
CPT/HCPCS: 36415; 71045; 80048; 84484; 85025; 93005; 96372; J1885

== ENCOUNTER 2024-05-08 14:20 | Emergency (ER) | payer BC ==
[2024-05-08] MEDS ORDERED: Aspirin Chewable 81 MG TAB ONE (14:39)
[2024-05-08 15:36] LABS: #Basophils Less than 0.03 10x3/uL (0.0-0.2); %Basophils 0.1 % (0.0-1.0); %Eosinophils 2.5 % (0.0-10.0); %Lymphocytes 26.3 % (21.0-51.0); %Monocytes 5.8 % (0.0-10.0); %Neutrophils 64.9 % (42.0-75.0); Hematocrit 39.5 % (36.0-47.0); Hemoglobin 13.6 g/dL (12.0-16.0); Mean Corpuscular HGB CONC 34.4 g/dL (32.0-36.0); Mean Corpuscular Volume 101.5 fL (78.0-98.0); Mean Platelet Volume 8.8 fL (7.4-10.4); Platelet Count 390 10x3/uL (130-400); RBC Distribution Width 12.8 % (11.5-14.5); Red Blood Cell (RBC) Count 3.89 mill/uL (4.20-5.40)
[2024-05-08 15:50] LABS: Troponin I Less than 0.010 ng/mL (< 0.028)
[2024-05-08 15:53] LABS: Influenza A by NAA Not Detected (NotDetected); Influenza B by NAA Not Detected (NotDetected); SARS-CoV-2 NAA Rapid Test Not Detected (NotDetected)
[2024-05-08 16:23] LABS: BHCG - Serum Negative (NEGATIVE); Pregs Control Background? CLEAR/WHITE (CLR/WHITE); Pregs Control Bar Appear? YES (CONTROL BAR)
[2024-05-08 16:35] LABS: ALT (SGPT) 25 U/L (8-55); AST (SGOT) 16 U/L (5-34); Albumin 3.6 g/dL (3.5-5.0); Alkaline Phosphatase 115 U/L (40-110); Anion Gap 13 mmol/L (10-20); BUN (Urea Nitrogen) 12 mg/dL (7.0-18.7); Bilirubin, Total 0.3 mg/dL (0.2-1.2); Calc. Creatinine Clearance 0 mL/min (70-130); Calcium 9.7 mg/dL (7.8-10.44); Carbon Dioxide 24 mmol/L (22-29); Chloride 108 mmol/L (98-107); Estimated GFR 95; Globulin 3.4 g/dL (2.4-3.5); Glucose 94 mg/dL (70-105); Potassium 3.6 mmol/L (3.5-5.1); Sodium 141 mmol/L (136-145)
[2024-05-08] MEDS ORDERED: Ketorolac Tromethamine 30 MG (1 mL) VIAL ONE (16:52)
[2024-05-08 19:09] LABS: Bacteria/HPF None Seen HPF (None Seen); Bilirubin Negative (Negative); Blood, Urine Negative (Negative); CAUTI Indications for Culture Dysuria,urgency,freq; Clarity Clear (Clear); Glucose, Urine (Dipstick) Normal (Negative); Ketone, Urine Negative (Negative); Leukocyte Negative Leu/uL (Negative); Nitrite Negative (Negative); Protein, Urine (Dipstick) 10 mg/dL (Neg-Trace); RBC/HPF 0-3 HPF (0-3); Specific Gravity, Urine 1.027 (1.002-1.036); Urobilinogen Normal mg/dL (Less than 2); WBC/HPF None Seen HPF (0-3)
[2024-05-08 19:12] LABS: Urine Culture Reflex No No
== END 2024-05-08 20:07 | disposition home or self-care (01) ==
LOC: ERS 14:20
DX: R10.9 Unspecified abdominal pain (principal); R07.9 Chest pain, unspecified; R29.700 NIHSS score 0; I11.0 Hypertensive heart disease with heart failure; I50.9 Heart failure, unspecified; F17.210 Nicotine dependence, cigarettes, uncomplicated; Z79.82 Long term (current) use of aspirin; Z79.899 Other long term (current) drug therapy
CPT/HCPCS: 70450; 71045; 74176; 80053; 81001; 83880; 84484; 84703; 85025; 93005; 96374; J1885

== ENCOUNTER 2024-11-16 10:53 | Emergency (ER) | payer BC ==
[2024-11-16] MEDS ORDERED: Ketorolac Tromethamine 30 MG (1 mL) VIAL ONE (11:13)
== END 2024-11-16 12:30 | disposition home or self-care (01) ==
LOC: ERS 10:53
DX: M25.562 Pain in left knee (principal); M25.561 Pain in right knee; M79.632 Pain in left forearm; I11.0 Hypertensive heart disease with heart failure; I50.9 Heart failure, unspecified; F17.210 Nicotine dependence, cigarettes, uncomplicated; Z86.73 Personal history of transient ischemic attack (TIA), and cerebral infarction without residual deficits; Z79.82 Long term (current) use of aspirin; Z79.02 Long term (current) use of antithrombotics/antiplatelets; Z79.899 Other long term (current) drug therapy; W01.0XXA Fall on same level from slipping, tripping and stumbling without subsequent striking against object, initial encounter
CPT/HCPCS: 96372; 99284; J1885